=== PATIENT | male | born 1985 | race African-American/Black ===

== ENCOUNTER 2016-08-20 16:24 | Inpatient (IN) | payer BC ==
[2016-08-20 17:25] VITALS: BMI 17.9
--- NOTE | 2016-08-20 18:21 | HP ---
CIWA Score - CIWA Score Nausea/Vomitin Muscle Tremors: 4-Moderate,w/Arms Extend Anxiety: 4-Mod. Anxious/Guarded Agitation: 4-Moderately Restless Paroxysmal Sweats: 3 Orientation: 0-Oriented Tacttile Disturbances: 2-Mild Itch/Numbness/Burn Auditory Disturbances: 0-None Visual Disturbances: 0-None Headache: 0-None Present CIWA-Ar Total Score: 20 Admission ROS BHS - HPI Chief Complaint: WITHDRAWAL SX. Allergies/Adverse Reactions: Allergies Allergy/AdvReac Type Severity Reaction Status Date / Time No Known Allergies Allergy Verified 01/22/13 14:15 History of Present Illness: 31 Y/O MAN WITH A LONG HX. OF DRUG AND ALCOHOL DEPENDENCE IS ADMITTED FOR DETOX.PT. HAS BEEN IN PREVIOUS DETOX,REPORTS ALMOST 2 YRS. SOBER. Exam Limitations: No Limitations - Ebola screening Have you traveled outside of the country in the last 21 days: No (N) Have you had contact with anyone from an Ebola affected area: No Have you been sick,other than usual withdrawal symptoms: No Do you have a fever: No - Review of Systems Constitutional: Diaphoresis EENT: reports: No Symptoms Reported Respiratory: reports: No Symptoms reported Cardiac: reports: No Symptoms Reported GI: reports: Nausea, Vomiting (LAST NIGHT), Abdominal cramping : reports: Frequency Musculoskeletal: reports: Back Pain Integumentary: reports: Sweating Neuro: reports: Tingling, Tremors Endocrine: reports: No Symptoms Reported Hematology: reports: No Symptoms Reported Psychiatric: reports: No Sypmtoms Reported Other Systems: Reviewed and Negative Patient History - Patient Medical History Hx Anemia: No Hx Asthma: No Hx Chronic Obstructive Pulmonary Disease (COPD): No Hx Cancer: No Hx Cardiac Disorders: No Hx Congestive Heart Failure: No Hx Hypertension: No Hx Hypercholesterolemia: No Hx Pacemaker: No HX Cerebrovascular Accident: No Hx Seizures: No Hx Dementia: No Hx Diabetes: No Hx Gastrointestinal Disorders: No Hx Liver Disease: No Hx Genitourinary Disorders: No Hx Sexually Transmitted Disorders: No Hx Renal Disease (ESRD): No Hx Thyroid Disease: No Hx Human Immunodeficiency Virus (HIV): No Hx Hepatitis C: No Hx Depression: No Hx Suicide Attempt: No Hx Bipolar Disorder: No Hx Schizophrenia: No - Patient Surgical History Past Surgical History: No Hx Neurologic Surgery: No Hx Cataract Extraction: No Hx Cardiac Surgery: No Hx Lung Surgery: No Hx Breast Surgery: No Hx Breast Biopsy: No Hx Abdominal Surgery: No Hx Appendectomy: No Hx Cholecystectomy: No Hx Genitourinary Surgery: No Hx Section: No Hx Orthopedic Surgery: No Anesthesia Reaction: No - PPD History Previous Implant?: Yes Documented Results: Negative w/proof Date: 01/25/13 Results: 0 mm PPD to be Administered?: Yes - Smoking Cessation Smoking history: Current every day smoker Have you smoked in the past 12 months: No Aproximately how many cigarettes per day: 5 Hx Chewing Tobacco Use: No Initiated information on smoking cessation: Yes 'Breaking Loose' booklet given: 08/20/16 - Substance & Tx. History Hx Alcohol Use: Yes Hx Substance Use: Yes Substance Use Type: Alcohol, Cocaine Hx Substance Use Treatment: Yes (DETOX & REHAB) - Substances Abused Alcohol Route: Oral Frequency: Daily Amount used: CHINO 3 pints, Beer 1 six pack Age of first use: 14 Date of Last Use: 08/20/16 Crack Route: Smoking Frequency: Daily Amount used: 3 BAGS Age of first use: 18 Date of Last Use: 08/19/16 Marijuana/Hashish Route: Smoking Frequency: Daily Amount used: 2 BAGS Age of first use: 17 Date of Last Use: 08/20/16 Family Disease History - Family Disease History Family Disease History: Diabetes: Grandparent (HTN), Heart Disease: Grandparent , Other: Mother (COCAINE & ALCOHOL) Admission Physical Exam S - Vital Signs Vital Signs: Vital Signs - 24 hr 08/20/16 17:23 Temperature 98.9 F Pulse Rate 89 Respiratory 18 Rate Blood Pressure 138/80 - Physical General Appearance: Yes: Tremorous, Sweating, Anxious HEENTM: Yes: Within Normal Limits Respiratory: Yes: Chest Non-Tender, Lungs Clear, Normal Breath Sounds Neck: Yes: Supple Breast: Yes: Breast Exam Deferred Cardiology: Yes: Regular Rhythm, Regular Rate, S1, S2 Abdominal: Yes: Normal Bowel Sounds, Non Tender, Flat, Soft Genitourinary: Yes: Within Normal Limits Back: Yes: Within Normal Limits Musculoskeletal: Yes: Within Normal Limits Extremities: Yes: Tremors Neurological: Yes: Fully Oriented, Alert Integumentary: Yes: Diaphoresis Lymphatic: Yes: Within Normal Limits - Diagnostic (1) Cannabis dependence Current Visit: Yes Status: Active (2) Cocaine dependence Current Visit: Yes Status: Active (3) Nicotine dependence Current Visit: Yes Status: Active (4) Alcohol dependence with uncomplicated withdrawal Current Visit: Yes Status: Acute Cleared for Admission [facility] - Detox or Rehab [facility] Level of Care: Medically Managed Detox Regimen/Protocol: Librium [facility] Breath Alcohol Content Breath Alcohol Content: 0 Urine Drug Screen - Results Drug Screen Negative: No Urine Drug Screen Results: THC-Marijuana, VINCENT-Cocaine, AMP-Amphetamines, MET- Methamphetamine
[2016-08-20] MEDS ORDERED: LOPERAMIDE HCL 2 MG CAPSULE PO PRN (18:27)
[2016-08-20] MEDS ORDERED: guaiFENesin/D-METHORPHAN HB 10 ML UNIT-DOSE CUPS PO PRN (18:27)
[2016-08-20] MEDS ORDERED: chlordiazePOXIDE HCL 25 MG CAPSULE PO ONE (18:27)
[2016-08-20] MEDS ORDERED: diphenhydrAMINE HCL 50 MG CAPSULE PO PRN (18:27)
[2016-08-20] MEDS ORDERED: IBUPROFEN 400 MG TABLET (FP) PO PRN (18:27)
[2016-08-20] MEDS ORDERED: MAGNESIUM CITRATE 300 ML BOTTLE PO PRN (18:27)
[2016-08-20] MEDS ORDERED: NICOTINE POLACRILEX 2 MG GUM BC PRN (18:27)
[2016-08-20] MEDS ORDERED: P-EPHED 60MG/TRIPROLIDI 2.5MG TABLET PO PRN (18:27)
[2016-08-20] MEDS ORDERED: chlordiazePOXIDE HCL 25 MG CAPSULE PO PRN (18:27)
[2016-08-20] MEDS ORDERED: hydrOXYzine PAMOATE 50 MG CAPSULE (FP) PO PRN (18:27)
[2016-08-20] MEDS ORDERED: MENTHOL/PHENOL 1 EACH UD MM PRN (18:27)
[2016-08-20] MEDS ORDERED: MAGNESIUM HYDROX 2400MG/30ML ORAL SUSPENSION 30 ML CUP PO PRN (18:27)
[2016-08-20] MEDS ORDERED: MAG HYDROX/AL HYDROX/SIMETH 30 ML UNIT-DOSE CUP PO PRN (18:27)
[2016-08-20] MEDS ORDERED: ACETAMINOPHEN 325 MG TABLET (FP) PO PRN (18:27)
[2016-08-20] MEDS: NICOTINE 14 MG/24 HOURS TOPICAL PATCH TD SCH (19:36)
[2016-08-20] MEDS: chlordiazePOXIDE HCL 25 MG CAPSULE PO SCH (23:06)
[2016-08-20] MEDS: THIAMINE HCL 100 MG TABLET (FP) PO SCH (23:06)
[2016-08-21] MEDS: chlordiazePOXIDE HCL 25 MG CAPSULE PO SCH ×2 (07:06→11:43)
[2016-08-21 09:50] LABS: MCHC 33.4 g/dl (32.0-35.9); MEAN CELL VOLUME 89.9 fl (80-96); MEAN PLT VOLUME 8.4 fl (7.5-11.1); PLATELET COUNT 228 K/MM3 (134-434); RDW 13.4 % (11.9-15.9); WHITE BLOOD COUNT 5.4 K/mm3 (4.0-10.0)
[2016-08-21 10:17] LABS: ALBUMIN 3.7 g/dl (3.4-5.0); ALK PHOS 48 U/L (45-117); ANION GAP 8 (8-16); BILIRUBIN,TOTAL 0.5 mg/dL (0.2-1.0); CO2 28 mmol/L (21-32); CREATININE 1.3 mg/dL (0.7-1.3); GLUCOSE,RANDOM 78 mg/dL (74-106); SGOT/AST 18 U/L (15-37); SGPT/ALT 29 U/L (12-78); TOT PROT 6.9 g/dl (6.4-8.2)
[2016-08-21] MEDS: PRENATAL VITAMINS W/ FOLIC ACID TABLET (FP) PO SCH (11:43)
[2016-08-21] MEDS: NICOTINE 14 MG/24 HOURS TOPICAL PATCH TD SCH (11:43)
[2016-08-21] MEDS ORDERED: diazePAM 5 MG TABLET PO PRN (13:03)
--- NOTE | 2016-08-21 13:09 | PN ---
[facility] CIWA - CIWA Score Nausea/Vomitin-Mild Nausea/No Vomiting Muscle Tremors: 3 Anxiety: 2 Agitation: 2 Paroxysmal Sweats: 3 Orientation: 1-Uncertain about Date Tacttile Disturbances: 1-Very Mild Itch/Numbness Auditory Disturbances: 0-None Visual Disturbances: 2-Mild Sensitivity Headache: 0-None Present CIWA-Ar Total Score: 15 BHS Progress Note (SOAP) Subjective: Fatigue, Body Aches, Tremors, Sweating. PT. REPORTING THAT LIBRIUM IS CAUSING HIM TO FEEL SEVERELY NAUSEOUS. Objective: 08/21/16 13:06 Vital Signs Temperature 97.1 F L 08/21/16 09:34 Pulse Rate 57 L 08/21/16 09:34 Respiratory Rate 18 08/21/16 09:34 Blood Pressure 118/72 08/21/16 09:34 O2 Sat by Pulse Oximetry (%) Laboratory Last Values WBC 5.4 K/mm3 (4.0-10.0) 08/21/16 07:30 RBC 4.56 M/mm3 (4.00-5.60) 08/21/16 07:30 Hgb 13.7 GM/dL (11.7-16.9) 08/21/16 07:30 Hct 41.0 % (35.4-49) 08/21/16 07:30 MCV 89.9 fl (80-96) 08/21/16 07:30 MCHC 33.4 g/dl (32.0-35.9) 08/21/16 07:30 RDW 13.4 % (11.9-15.9) 08/21/16 07:30 Plt Count 228 K/MM3 (134-434) 08/21/16 07:30 MPV 8.4 fl (7.5-11.1) 08/21/16 07:30 Sodium 138 mmol/L (136-145) 08/21/16 07:20 Potassium 3.8 mmol/L (3.5-5.1) 08/21/16 07:20 Chloride 102 mmol/L (98-107) 08/21/16 07:20 Carbon Dioxide 28 mmol/L (21-32) 08/21/16 07:20 Anion Gap 8 (8-16) 08/21/16 07:20 BUN 18 mg/dL (7-18) D 08/21/16 07:20 Creatinine 1.3 mg/dL (0.7-1.3) D 08/21/16 07:20 Creat Clearance w eGFR > 60 (>60) 08/21/16 07:20 Random Glucose 78 mg/dL (74-106) 08/21/16 07:20 Calcium 9.0 mg/dL (8.5-10.1) 08/21/16 07:20 Total Bilirubin 0.5 mg/dL (0.2-1.0) D 08/21/16 07:20 AST 18 U/L (15-37) D 08/21/16 07:20 ALT 29 U/L (12-78) D 08/21/16 07:20 Alkaline Phosphatase 48 U/L (45-117) 08/21/16 07:20 Total Protein 6.9 g/dl (6.4-8.2) 08/21/16 07:20 Albumin 3.7 g/dl (3.4-5.0) 08/21/16 07:20 LABS NOTED. Assessment: 08/21/16 13:06 WITHDRAWAL SYMPTOMS. Plan: CONTINUE DETOX. CHANGE FROM LIBRIUM DETOX REGIMEN TO VALIUM DETOX REGIMEN.
[2016-08-21] MEDS: diazePAM 5 MG TABLET PO SCH ×2 (13:59→22:46)
[2016-08-21] MEDS ORDERED: diazePAM 5 MG TABLET PO ONE (14:00)
[2016-08-21] MEDS: THIAMINE HCL 100 MG TABLET (FP) PO SCH (22:46)
[2016-08-21] MEDS ORDERED: chlordiazePOXIDE HCL 25 MG CAPSULE PO SCH (23:00)
[2016-08-21 23:01] LABS: URINE APPEARANCE CLEAR; URINE BILIRUBIN NEGATIVE (NEGATIVE); URINE BLOOD NEGATIVE (NEGATIVE); URINE COLOR YELLOW; URINE GLUCOSE (UA) NEGATIVE (NEGATIVE); URINE KETONE NEGATIVE (NEGATIVE); URINE LEUK ESTERASE NEGATIVE (NEGATIVE); URINE NITRITE NEGATIVE (NEGATIVE); URINE PROTEIN NEGATIVE (NEGATIVE); URINE UROBILINOGEN NEGATIVE E.U./dl (0.2-1.0)
[2016-08-22] MEDS: diazePAM 5 MG TABLET PO SCH ×3 (06:05→22:21)
[2016-08-22] MEDS: NICOTINE 14 MG/24 HOURS TOPICAL PATCH TD SCH (10:21)
[2016-08-22] MEDS: PRENATAL VITAMINS W/ FOLIC ACID TABLET (FP) PO SCH (10:22)
--- NOTE | 2016-08-22 14:20 | PN ---
S CIWA - CIWA Score Nausea/Vomitin-No Nausea/No Vomiting Muscle Tremors: 2 Anxiety: 4-Mod. Anxious/Guarded Agitation: 4-Moderately Restless Paroxysmal Sweats: 3 Orientation: 0-Oriented Tacttile Disturbances: 0-None Auditory Disturbances: 0-None Visual Disturbances: 0-None Headache: 0-None Present CIWA-Ar Total Score: 13 BHS Progress Note (SOAP) Subjective: AGITATED,SWEATING,INTERRUPTED SLEEP,RESTLESS,TREMORS. Objective: 08/22/16 14:20 Vital Signs - 8 hr 08/22/16 10:40 Temperature 97.0 F L Pulse Rate 64 Respiratory 18 Rate Blood Pressure 116/69 Laboratory Tests 08/21/16 08/21/16 08/21/16 07:20 07:20 07:30 WBC 5.4 RBC 4.56 Hgb 13.7 Hct 41.0 MCV 89.9 MCHC 33.4 RDW 13.4 Plt Count 228 MPV 8.4 Sodium 138 Potassium 3.8 Chloride 102 Carbon Dioxide 28 Anion Gap 8 BUN 18 D Creatinine 1.3 D Creat Clearance w eGFR > 60 Random Glucose 78 Calcium 9.0 Total Bilirubin 0.5 D AST 18 D ALT 29 D Alkaline Phosphatase 48 Total Protein 6.9 Albumin 3.7 Urine Color Urine Appearance Urine pH Ur Specific [place] Urine Protein Urine Glucose (UA) Urine Ketones Urine Blood Urine Nitrite Urine Bilirubin Urine Urobilinogen Ur Leukocyte Esterase RPR Titer Nonreactive 08/21/16 22:45 WBC RBC Hgb Hct MCV MCHC RDW Plt Count MPV Sodium Potassium Chloride Carbon Dioxide Anion Gap BUN Creatinine Creat Clearance w eGFR Random Glucose Calcium Total Bilirubin AST ALT Alkaline Phosphatase Total Protein Albumin Urine Color Yellow Urine Appearance Clear Urine pH 5.0 Ur Specific [place] 1.030 Urine Protein Negative Urine Glucose (UA) Negative Urine Ketones Negative Urine Blood Negative Urine Nitrite Negative Urine Bilirubin Negative Urine Urobilinogen Negative Ur Leukocyte Esterase Negative RPR Titer LABS NOTED Assessment: 08/22/16 14:20 WITHDRAWAL SX. Plan: CONTINUE DETOX
[2016-08-22] MEDS: THIAMINE HCL 100 MG TABLET (FP) PO SCH (22:21)
[2016-08-22] MEDS ORDERED: chlordiazePOXIDE 5 MG CAPSULE PO SCH (23:00)
[2016-08-23 06:44] VITALS: BP 108/60
[2016-08-23] MEDS ORDERED: diazePAM 5 MG TABLET PO SCH (10:00)
[2016-08-23] MEDS: NICOTINE 14 MG/24 HOURS TOPICAL PATCH TD SCH (10:06)
[2016-08-23] MEDS: PRENATAL VITAMINS W/ FOLIC ACID TABLET (FP) PO SCH (10:06)
--- NOTE | 2016-08-23 10:31 | DS ---
[facility] Detox Discharge Summary Admission Date: 08/20/16 Discharge Date: 08/23/16 - History Present History: Alcohol Dependence, Cannabis Dependence, Cocaine Dependence Pertinent Past History: DENIES - Physical Exam Results Vital Signs: Vital Signs Temperature 97.1 F L 08/23/16 06:43 Pulse Rate 46 L 08/23/16 06:43 Respiratory Rate 18 08/23/16 06:43 Blood Pressure 108/60 08/23/16 06:43 O2 Sat by Pulse Oximetry (%) Pertinent Admission Physical Exam Findings: WITHDRAWAL SX. Laboratory Last Values WBC 5.4 K/mm3 (4.0-10.0) 08/21/16 07:30 RBC 4.56 M/mm3 (4.00-5.60) 08/21/16 07:30 Hgb 13.7 GM/dL (11.7-16.9) 08/21/16 07:30 Hct 41.0 % (35.4-49) 08/21/16 07:30 MCV 89.9 fl (80-96) 08/21/16 07:30 MCHC 33.4 g/dl (32.0-35.9) 08/21/16 07:30 RDW 13.4 % (11.9-15.9) 08/21/16 07:30 Plt Count 228 K/MM3 (134-434) 08/21/16 07:30 MPV 8.4 fl (7.5-11.1) 08/21/16 07:30 Sodium 138 mmol/L (136-145) 08/21/16 07:20 Potassium 3.8 mmol/L (3.5-5.1) 08/21/16 07:20 Chloride 102 mmol/L (98-107) 08/21/16 07:20 Carbon Dioxide 28 mmol/L (21-32) 08/21/16 07:20 Anion Gap 8 (8-16) 08/21/16 07:20 BUN 18 mg/dL (7-18) D 08/21/16 07:20 Creatinine 1.3 mg/dL (0.7-1.3) D 08/21/16 07:20 Creat Clearance w eGFR > 60 (>60) 08/21/16 07:20 Random Glucose 78 mg/dL (74-106) 08/21/16 07:20 Calcium 9.0 mg/dL (8.5-10.1) 08/21/16 07:20 Total Bilirubin 0.5 mg/dL (0.2-1.0) D 08/21/16 07:20 AST 18 U/L (15-37) D 08/21/16 07:20 ALT 29 U/L (12-78) D 08/21/16 07:20 Alkaline Phosphatase 48 U/L (45-117) 08/21/16 07:20 Total Protein 6.9 g/dl (6.4-8.2) 08/21/16 07:20 Albumin 3.7 g/dl (3.4-5.0) 08/21/16 07:20 Urine Color Yellow 08/21/16 22:45 Urine Appearance Clear 08/21/16 22:45 Urine pH 5.0 (5.0-8.0) 08/21/16 22:45 Ur Specific [place] 1.030 (1.001-1.035) 08/21/16 22:45 Urine Protein Negative (NEGATIVE) 08/21/16 22:45 Urine Glucose (UA) Negative (NEGATIVE) 08/21/16 22:45 Urine Ketones Negative (NEGATIVE) 08/21/16 22:45 Urine Blood Negative (NEGATIVE) 08/21/16 22:45 Urine Nitrite Negative (NEGATIVE) 08/21/16 22:45 Urine Bilirubin Negative (NEGATIVE) 08/21/16 22:45 Urine Urobilinogen Negative E.U./dl (0.2-1.0) 08/21/16 22:45 Ur Leukocyte Esterase Negative (NEGATIVE) 08/21/16 22:45 RPR Titer Nonreactive (NONREACTIVE) 08/21/16 07:20 LABS NOTED - Treatment Hospital Course: Detox Protocol Followed, Detoxed Safely, Responded well, Discharged Condition Good, Rehab Referral Accepted Patient has Accepted a Rehab Referral to: [facility] - Medication Discharge Medications: Ambulatory Orders NK [No Known Home Medication] 08/20/16 - Diagnosis (1) Cannabis dependence Current Visit: Yes Status: Active (2) Cocaine dependence Current Visit: Yes Status: Active (3) Nicotine dependence Current Visit: Yes Status: Active (4) Alcohol dependence with uncomplicated withdrawal Current Visit: Yes Status: Acute - AMA Did Patient Leave Against Medical Advice: No
[2016-08-23 10:51] VITALS: PULSE 55; TEMP 98
[2016-08-23 11:44] LABS: HIV 1 & 2 AB NEGATIVE; HIV 1 AGp24 NEGATIVE
[2016-08-23] MEDS ORDERED: chlordiazePOXIDE HCL 10 MG CAPSULE PO SCH (23:00)
[2016-08-25] MEDS ORDERED: diazePAM 5 MG TABLET PO SCH (10:00)
== END 2016-08-23 12:39 | disposition other institution (70) | DRG 774 ==
LOC: YASAS 16:24 → Y3N 17:39
PROVIDERS: ADMIT Internal Medicine; ATTEND Internal Medicine
PROC: HZ2ZZZZ Detoxification Services for Substance Abuse Treatment (ICD-10-PCS; principal; 2016-08-20)
DX: F10.230 Alcohol dependence with withdrawal, uncomplicated (principal); F14.20 Cocaine dependence, uncomplicated; F12.20 Cannabis dependence, uncomplicated; F17.210 Nicotine dependence, cigarettes, uncomplicated
CPT/HCPCS: 36415; 80053; 81003; 85027; 86593; 87389; 93005; 93010

== ENCOUNTER 2016-08-23 13:04 | Inpatient (IN) | payer BC ==
[2016-08-23 13:46] VITALS: BMI 18.6
[2016-08-23] MEDS ORDERED: MENTHOL/PHENOL 1 EACH UD MM PRN (13:51)
[2016-08-23] MEDS ORDERED: P-EPHED 60MG/TRIPROLIDI 2.5MG TABLET PO PRN (13:51)
[2016-08-23] MEDS ORDERED: ACETAMINOPHEN 325 MG TABLET (FP) PO PRN (13:51)
[2016-08-23] MEDS ORDERED: MAG HYDROX/AL HYDROX/SIMETH 30 ML UNIT-DOSE CUP PO PRN (13:51)
[2016-08-23] MEDS ORDERED: MAGNESIUM HYDROX 2400MG/30ML ORAL SUSPENSION 30 ML CUP PO PRN (13:51)
[2016-08-23] MEDS ORDERED: MAGNESIUM CITRATE 300 ML BOTTLE PO PRN (13:51)
[2016-08-23] MEDS ORDERED: LOPERAMIDE HCL 2 MG CAPSULE PO PRN (13:51)
[2016-08-23] MEDS ORDERED: guaiFENesin/D-METHORPHAN HB 10 ML UNIT-DOSE CUPS PO PRN (13:51)
[2016-08-23] MEDS ORDERED: hydrOXYzine PAMOATE 50 MG CAPSULE (FP) PO PRN (13:51)
[2016-08-23] MEDS ORDERED: IBUPROFEN 400 MG TABLET (FP) PO PRN (13:51)
--- NOTE | 2016-08-23 14:02 | HP ---
Psychiatrist Admission - Data Date of interview: 08/23/16 Admission source: 3N Identifying data: This is the third [facility] admission for this 31 years old single Black male, father of 3 children, unemployed on public assistance, homeless Medical History: None significant. Smokes 5 cigarettes daily Psychiatric History: Denies history of previous psychiatric treatment Physical/Sexual Abuse/Trauma History: Denies history of physical, sexual abuse as well as DV relationship Additional Comment: Reports history of multiple misdemeanor arrests on charges of trespassing, drug sale etc. Denies being on probation at present Vital Signs: Vital Signs - 24 hr 08/23/16 13:26 Temperature 98.7 F Pulse Rate 73 Respiratory 18 Rate Blood Pressure 135/73 Allergies/Adverse Reactions: Allergies Allergy/AdvReac Type Severity Reaction Status Date / Time No Known Allergies Allergy Verified 01/22/13 14:15 Date of last physical exam: 08/20/16 Concur with the findings of this exam: Yes - Substance Abuse/Tx History Hx Alcohol Use: Yes Hx Substance Use: Yes Substance Use Type: Alcohol (Started drinking alcohol at age 14, consumes 3 pints of amy & a 6 pk of beer daily. Last drink on 08/20/16), Cocaine ( Started smoking crack cocaine at age 18, consumes 3 bags daily. Last smoked on 08/20/16), Marijuana (Started smoking marijuana at age 17, consumes 2 bags daily. Last smoked on 08/19/16) Hx Substance Use Treatment: Yes (6 previous inpt detox & 4 inpt rehab) - Admission Criteria Previous failed treatment: No Poor recovery environment: Yes Comorbidities: Yes Lacks judgement: Yes Mental Status Exam - Mental Status Exam Alert and Oriented to: Time, Place, Person Cognitive Function: Fair Patient Appearance: Well Groomed Mood: Hopeful, Euthymic Patient Behavior: Cooperative Speech Pattern: Clear Voice Loudness: Normal Thought Process: Intact Hallucinations: Denies Suicidal Ideation: Denies Homicidal Ideation: Denies Insight/Judgement: Fair Sleep: Fair Appetite: Good Muscle strength/Tone: Normal Gait/Station: Normal Psychiatric Findings - Problem List ([place] 1, 2,3) (1) Alcohol dependence with uncomplicated withdrawal Current Visit: No Status: Acute (2) Cocaine dependence Current Visit: No Status: Active (3) Cannabis dependence Current Visit: No Status: Active (4) Nicotine dependence Current Visit: No Status: Active - Initial Treatment Plan Initial Treatment Plan: Monitor progress
--- NOTE | 2016-08-23 16:57 | HP ---
[facility] Re[facility] Assess/Revision - Admission History Admitted to Rehab [facility]: [facility] Date of Admission to Rehab: 08/23/16 - Vital signs Vital Signs: Vital Signs Period Temp Pulse Resp BP Sys/Alonzo Pulse Ox Last 24 Hr 98.7 F 73 18 135/73 - Findings Detox History & Physical reviewed: Yes Concur with findings: Yes Comments/Additional Findings: trasnferred from detox to rehab admission as per protocol
[2016-08-23] MEDS: THIAMINE HCL 100 MG TABLET (FP) PO SCH (23:09)
[2016-08-24] MEDS: NICOTINE 7 MG/24 HOURS TOPICAL PATCH TD SCH (09:43)
[2016-08-24] MEDS: PRENATAL VITAMINS W/ FOLIC ACID TABLET (FP) PO SCH (09:43)
[2016-08-24] MEDS: COLLOIDAL OATMEAL 1 BAR EACH TP PRN (14:30)
[2016-08-24] MEDS: AMMONIUM LACTATE 12% LOTION 225 GM BOTTLE TP PRN (14:31)
[2016-08-24] MEDS: THIAMINE HCL 100 MG TABLET (FP) PO SCH (21:12)
[2016-08-24] MEDS: diphenhydrAMINE HCL 50 MG CAPSULE PO PRN (21:12)
[2016-08-25] MEDS: PRENATAL VITAMINS W/ FOLIC ACID TABLET (FP) PO SCH (09:55)
[2016-08-25] MEDS: NICOTINE 7 MG/24 HOURS TOPICAL PATCH TD SCH (09:55)
[2016-08-25] MEDS: THIAMINE HCL 100 MG TABLET (FP) PO SCH (21:11)
[2016-08-25] MEDS: diphenhydrAMINE HCL 50 MG CAPSULE PO PRN (22:22)
[2016-08-26] MEDS: NICOTINE 7 MG/24 HOURS TOPICAL PATCH TD SCH (09:52)
[2016-08-26] MEDS: PRENATAL VITAMINS W/ FOLIC ACID TABLET (FP) PO SCH (09:52)
[2016-08-26] MEDS: THIAMINE HCL 100 MG TABLET (FP) PO SCH (21:23)
[2016-08-26] MEDS: diphenhydrAMINE HCL 50 MG CAPSULE PO PRN (21:23)
[2016-08-27] MEDS: PRENATAL VITAMINS W/ FOLIC ACID TABLET (FP) PO SCH (10:03)
[2016-08-27] MEDS: NICOTINE 7 MG/24 HOURS TOPICAL PATCH TD SCH (10:03)
[2016-08-27] MEDS: AMMONIUM LACTATE 12% LOTION 225 GM BOTTLE TP PRN (14:11)
[2016-08-27] MEDS: COLLOIDAL OATMEAL 1 BAR EACH TP PRN (14:12)
[2016-08-27] MEDS: THIAMINE HCL 100 MG TABLET (FP) PO SCH (22:14)
[2016-08-27] MEDS: diphenhydrAMINE HCL 50 MG CAPSULE PO PRN (22:14)
[2016-08-28] MEDS: NICOTINE 7 MG/24 HOURS TOPICAL PATCH TD SCH (09:52)
[2016-08-28] MEDS: PRENATAL VITAMINS W/ FOLIC ACID TABLET (FP) PO SCH (09:52)
[2016-08-28] MEDS: diphenhydrAMINE HCL 50 MG CAPSULE PO PRN ×2 (21:35→22:56)
[2016-08-28] MEDS: THIAMINE HCL 100 MG TABLET (FP) PO SCH (21:35)
[2016-08-29] MEDS: NICOTINE 7 MG/24 HOURS TOPICAL PATCH TD SCH (09:44)
[2016-08-29] MEDS: PRENATAL VITAMINS W/ FOLIC ACID TABLET (FP) PO SCH (09:44)
[2016-08-29] MEDS: THIAMINE HCL 100 MG TABLET (FP) PO SCH (21:13)
[2016-08-29] MEDS: diphenhydrAMINE HCL 50 MG CAPSULE PO PRN (21:13)
[2016-08-30] MEDS: PRENATAL VITAMINS W/ FOLIC ACID TABLET (FP) PO SCH (09:41)
[2016-08-30] MEDS: NICOTINE 7 MG/24 HOURS TOPICAL PATCH TD SCH (09:42)
[2016-08-30] MEDS: THIAMINE HCL 100 MG TABLET (FP) PO SCH (21:38)
[2016-08-30] MEDS: diphenhydrAMINE HCL 50 MG CAPSULE PO PRN (21:38)
[2016-08-31] MEDS: PRENATAL VITAMINS W/ FOLIC ACID TABLET (FP) PO SCH (09:50)
[2016-08-31] MEDS: NICOTINE 7 MG/24 HOURS TOPICAL PATCH TD SCH (09:51)
[2016-08-31] MEDS: diphenhydrAMINE HCL 50 MG CAPSULE PO PRN (21:39)
[2016-08-31] MEDS: THIAMINE HCL 100 MG TABLET (FP) PO SCH (21:39)
[2016-09-01] MEDS: PRENATAL VITAMINS W/ FOLIC ACID TABLET (FP) PO SCH (10:05)
[2016-09-01] MEDS: NICOTINE 7 MG/24 HOURS TOPICAL PATCH TD SCH (10:05)
[2016-09-01] MEDS: diphenhydrAMINE HCL 50 MG CAPSULE PO PRN (21:20)
[2016-09-01] MEDS: THIAMINE HCL 100 MG TABLET (FP) PO SCH (21:20)
[2016-09-01] MEDS: AMMONIUM LACTATE 12% LOTION 225 GM BOTTLE TP PRN (21:20)
[2016-09-02] MEDS: PRENATAL VITAMINS W/ FOLIC ACID TABLET (FP) PO SCH (10:05)
[2016-09-02] MEDS: NICOTINE 7 MG/24 HOURS TOPICAL PATCH TD SCH (10:06)
[2016-09-02] MEDS: COLLOIDAL OATMEAL 1 BAR EACH TP PRN (10:07)
[2016-09-02] MEDS: THIAMINE HCL 100 MG TABLET (FP) PO SCH (21:13)
[2016-09-02] MEDS: diphenhydrAMINE HCL 50 MG CAPSULE PO PRN (21:13)
[2016-09-03] MEDS: PRENATAL VITAMINS W/ FOLIC ACID TABLET (FP) PO SCH (10:30)
[2016-09-03] MEDS: NICOTINE 7 MG/24 HOURS TOPICAL PATCH TD SCH (10:31)
[2016-09-03] MEDS: THIAMINE HCL 100 MG TABLET (FP) PO SCH (21:11)
[2016-09-03] MEDS: diphenhydrAMINE HCL 50 MG CAPSULE PO PRN (21:11)
[2016-09-04] MEDS: PRENATAL VITAMINS W/ FOLIC ACID TABLET (FP) PO SCH (10:00)
[2016-09-04] MEDS: NICOTINE 7 MG/24 HOURS TOPICAL PATCH TD SCH (10:00)
[2016-09-04] MEDS: THIAMINE HCL 100 MG TABLET (FP) PO SCH (21:14)
[2016-09-04] MEDS: diphenhydrAMINE HCL 50 MG CAPSULE PO PRN (21:14)
[2016-09-05] MEDS: PRENATAL VITAMINS W/ FOLIC ACID TABLET (FP) PO SCH (09:45)
[2016-09-05] MEDS: NICOTINE 7 MG/24 HOURS TOPICAL PATCH TD SCH (09:45)
[2016-09-05] MEDS: diphenhydrAMINE HCL 50 MG CAPSULE PO PRN (21:07)
[2016-09-05] MEDS: THIAMINE HCL 100 MG TABLET (FP) PO SCH (21:08)
[2016-09-06] MEDS: PRENATAL VITAMINS W/ FOLIC ACID TABLET (FP) PO SCH (10:56)
[2016-09-06] MEDS: NICOTINE 7 MG/24 HOURS TOPICAL PATCH TD SCH (10:58)
[2016-09-06] MEDS: THIAMINE HCL 100 MG TABLET (FP) PO SCH (21:14)
[2016-09-06] MEDS: diphenhydrAMINE HCL 50 MG CAPSULE PO PRN (21:14)
[2016-09-07 06:53] VITALS: BP 115/71; PULSE 59; TEMP 97.6
--- NOTE | 2016-09-07 10:07 | PN ---
Psychiatric Progress Note Vital Signs: Vital Signs Period Temp Pulse Resp BP Sys/Alonzo Pulse Ox Last 24 Hr 97.6 F 59 16-18 115/71 Date of Session: 09/07/16 Chief Complaint:: Psychiatrist Discharge Note HPI: Patient addressing Alcohol, Cocaine and Cannabis Dependence comorbid with Nicotine Dependence ROS: None significant Current Medications: Active Medications Generic Name Dose Route Start Last Admin Trade Name Freq PRN Reason Stop Dose Admin Acetaminophen 650 mg 08/23/16 13:51 Tylenol - PO Q4H PRN FEVER OR PAIN Al Hydroxide/Mg Hydroxide 30 ml 08/23/16 13:51 Mylanta Oral Suspension - PO Q6H PRN DYSPEPSIA Colloidal Oatmeal 1 applic 08/24/16 12:47 09/02/16 10:07 Aveeno Soap - TP 1 bar DAILY PRN Administration HYGEINE Diphenhydramine HCl 50 mg 08/23/16 13:51 09/06/16 21:14 Benadryl - PO 50 mg HSMR1 PRN Administration FOR ITCHING Eucalyptus/Menthol/Phenol/Sorbitol 1 each 08/23/16 13:51 Cepastat Lozenge - MM Q4H PRN SORE THROAT Guaifenesin 10 ml 08/23/16 13:51 Robitussin Dm - PO Q6H PRN COUGH Hydroxyzine Pamoate 50 mg 08/23/16 13:51 Vistaril - PO Q4H PRN AGITATION Ibuprofen 400 mg 08/23/16 13:51 09/02/16 10:05 Motrin - PO 400 mg Q6H PRN Administration PAIN Lactic Acid 1 applic 08/24/16 12:48 09/01/16 21:20 Lac-Hydrin 12 TP 1 applic BID PRN Administration DRY SKIN Loperamide HCl 4 mg 08/23/16 13:51 Imodium - PO Q6H PRN DIARRHEA Magnesium Hydroxide 30 ml 08/23/16 13:51 Milk Of Magnesia - PO DAILY PRN CONSTIPATION Nicotine 7 mg 08/24/16 10:00 09/06/16 10:58 Nicoderm Patch - TD 7 mg DAILY CASSANDRA Administration Multivit/Folic Acid/Iron 1 tab 08/24/16 10:00 09/06/16 10:56 Vitamins (Sjr) - PO 1 tab DAILY CASSANDRA Administration Pseudoephedrine/Triprolidine 1 combo 08/23/16 13:51 Actifed - PO TID PRN NASAL CONGESTION Thiamine HCl 100 mg 08/23/16 22:00 09/06/16 21:14 Vitamin B1 - PO 100 mg HS CASSANDRA Administration Current Side Effect: No Lab tests ordered: Yes Lab tests reviewed: Yes Provider note:: Patient has completed this program. He has partially met his treatment goals and will continue to address his issues in outpatient treatment at [facility]. Told fha underwriter that from his participation in this program, he has learned a lot about his attitute and needs for change. He is stable for discharge today Total face to face time:: 35 Mental Status Exam - Mental Status Exam Alert and Oriented to: Time, Place, Person Cognitive Function: Fair Patient Appearance: Well Groomed Mood: Hopeful, Euthymic Affect: Appropriate Patient Behavior: Cooperative Speech Pattern: Clear Voice Loudness: Normal Thought Process: Intact Thought Disorder: Not Present Hallucinations: Denies Suicidal Ideation: Denies Homicidal Ideation: Denies Insight/Judgement: Fair Sleep: Fair Appetite: Good Muscle strength/Tone: Normal Gait/Station: Normal Psychiatric Treatment Plan - Problem List (1) Alcohol dependence with uncomplicated withdrawal Current Visit: No (2) Cocaine dependence Current Visit: No (3) Cannabis dependence Current Visit: No (4) Nicotine dependence Current Visit: No Initial treatment plan: Patient is discharged today and referred to [facility] [place] for outpatient treatment
[2016-09-07] MEDS: NICOTINE 7 MG/24 HOURS TOPICAL PATCH TD SCH (10:18)
[2016-09-07] MEDS: PRENATAL VITAMINS W/ FOLIC ACID TABLET (FP) PO SCH (10:18)
== END 2016-09-07 10:25 | disposition home or self-care (01) | DRG 772 ==
LOC: YASAS 13:04 → Y3W 13:06
PROVIDERS: ADMIT Psychiatry & Neurology Psychiatry; ATTEND Psychiatry & Neurology Psychiatry
PROC: HZ42ZZZ Group Counseling for Substance Abuse Treatment, Cognitive-Behavioral (ICD-10-PCS; principal; 2016-08-23)
DX: F10.20 Alcohol dependence, uncomplicated (principal); F14.20 Cocaine dependence, uncomplicated; F12.20 Cannabis dependence, uncomplicated; F17.210 Nicotine dependence, cigarettes, uncomplicated

== ENCOUNTER 2017-01-25 11:49 | Inpatient (IN) | payer BC ==
[2017-01-25 12:21] VITALS: BMI 18.4
--- NOTE | 2017-01-25 15:43 | HP ---
CIWA Score - CIWA Score Nausea/Vomitin Muscle Tremors: 3 Anxiety: 3 Agitation: 3 Paroxysmal Sweats: 2 Orientation: 0-Oriented Tacttile Disturbances: 2-Mild Itch/Numbness/Burn Auditory Disturbances: 2-Mild Harshness/Frighten Visual Disturbances: 2-Mild Sensitivity Headache: 2-Mild CIWA-Ar Total Score: 22 Admission ROS BHS - HPI Chief Complaint: I NEED HELP TO STOP DRINKING ALCOHOL,COCAINE AND K2 Allergies/Adverse Reactions: Allergies Allergy/AdvReac Type Severity Reaction Status Date / Time No Known Allergies Allergy Verified 01/25/17 15:37 History of Present Illness: THIS 31 YEARS OLD BLACK MALE WITH ALCOHOL,COCAINE,K2 DEPENDNECE,WITHDRAWAL SYMPTOM,SEEKING HELP TO COME IN FOR DETOX,LAST DETOX [facility] 08/20,16 TO 08/23/16 SYNCOPE ALCOHOL RELATED LOW BACK PAIN LONGEST PERIOD OF SOBRIETY 1 YEAR Exam Limitations: No Limitations - Ebola screening Have you traveled outside of the country in the last 21 days: No Have you had contact with anyone from an Ebola affected area: No Have you been sick,other than usual withdrawal symptoms: No - Review of Systems Constitutional: Chills, Loss of Appetite, Malaise, Night Sweats, Changes in sleep, Weakness, Unintentional Wgt. Loss EENT: reports: Tearing, Nose Congestion Respiratory: reports: No Symptoms reported Cardiac: reports: No Symptoms Reported GI: reports: Diarrhea, Nausea, Vomiting, Abdominal cramping : reports: No Symptoms Reported Musculoskeletal: reports: Back Pain, Muscle Pain Neuro: reports: Headache, Tremors Endocrine: reports: No Symptoms Reported Hematology: reports: No Symptoms Reported Psychiatric: reports: No Sypmtoms Reported Patient History - Patient Medical History Hx Anemia: No Hx Asthma: No Hx Chronic Obstructive Pulmonary Disease (COPD): No Hx Cancer: No Hx Cardiac Disorders: No Hx Congestive Heart Failure: No Hx Hypertension: No Hx Hypercholesterolemia: No Hx Pacemaker: No HX Cerebrovascular Accident: No Hx Seizures: No Hx Dementia: No Hx Diabetes: No Hx Gastrointestinal Disorders: No Hx Liver Disease: No Hx Genitourinary Disorders: No Hx Sexually Transmitted Disorders: No Hx Renal Disease (ESRD): No Hx Thyroid Disease: No Hx Human Immunodeficiency Virus (HIV): No (LAST 2016 NEGATIVE) Hx Hepatitis C: No Hx Depression: No Hx Suicide Attempt: No Hx Bipolar Disorder: No Hx Schizophrenia: No Other Medical History: NO SUICIDAL,NO HOMICIDAL - Patient Surgical History Past Surgical History: No Hx Neurologic Surgery: No Hx Cataract Extraction: No Hx Cardiac Surgery: No Hx Lung Surgery: No Hx Breast Surgery: No Hx Breast Biopsy: No Hx Abdominal Surgery: No Hx Appendectomy: No Hx Cholecystectomy: No Hx Genitourinary Surgery: No Hx Section: No Hx Orthopedic Surgery: No Anesthesia Reaction: No - PPD History Previous Implant?: Yes Documented Results: Negative w/proof Date: 08/22/16 Results: 0 mm PPD to be Administered?: No - Smoking Cessation Smoking history: Current every day smoker Have you smoked in the past 12 months: No Aproximately how many cigarettes per day: 3 Cigars Per Day: 4 Hx Chewing Tobacco Use: No Initiated information on smoking cessation: Yes 'Breaking Loose' booklet given: 01/25/17 - Substance & Tx. History Hx Alcohol Use: Yes Hx Substance Use: Yes Substance Use Type: Alcohol, Cocaine Hx Substance Use Treatment: Yes ([facility] 08/20/16 TO 08/23/16) - Substances Abused Alcohol Route: Oral Frequency: Daily Amount used: 1 pint vodka Age of first use: 15 Date of Last Use: 01/24/17 Cocaine Route: Inhalation Frequency: Daily Amount used: $50 Age of first use: 18 Date of Last Use: 01/24/17 K2 Route: Smoking Frequency: 1-2 times per week Amount used: 1 bag Age of first use: 31 Date of Last Use: 01/24/17 Family Disease History - Family Disease History Family Disease History: Diabetes: Grandparent (HTN), Heart Disease: Grandparent , Other: Mother (COCAINE & ALCOHOL) Admission Physical Exam [facility] - Vital Signs Vital Signs: Vital Signs - 24 hr 01/25/17 12:13 Temperature 97.4 F L Pulse Rate 67 Respiratory 18 Rate Blood Pressure 135/66 - Physical General Appearance: Yes: Moderate Distress, Tremorous, Irritable, Sweating, Anxious HEENTM: Yes: Hearing grossly Normal, Normal ENT Inspection, Nasal Congestion Respiratory: Yes: Lungs Clear, Normal Breath Sounds, No Respiratory Distress Neck: Yes: Within Normal Limits, Supple, Trachea in good position Breast: Yes: Within Normal Limits Cardiology: Yes: Within Normal Limits, Regular Rhythm, Regular Rate, S1, S2 Abdominal: Yes: Within Normal Limits, Normal Bowel Sounds, Non Tender, Soft Genitourinary: Yes: Within Normal Limits Back: Yes: Normal Inspection, Muscle Spasm Musculoskeletal: Yes: full range of Motion, Back pain, Muscle Pain Extremities: Yes: Tremors Neurological: Yes: advertising photographer II-XII NML intact, Fully Oriented, Alert, Motor Strength 5/5 Integumentary: Yes: Dry Lymphatic: Yes: Within Normal Limits - Diagnostic (1) Cannabis dependence Current Visit: No Status: Active (2) Cocaine dependence Current Visit: No Status: Active (3) Nicotine dependence Current Visit: No Status: Active (4) Weight decreased Current Visit: No Status: Active (5) Alcohol dependence with uncomplicated withdrawal Current Visit: No Status: Acute (6) Syncope Current Visit: Yes Status: Acute Cleared for Admission [facility] - Detox or Rehab [facility] Level of Care: Medically Managed Detox Regimen/Protocol: Librium [facility] Breath Alcohol Content Breath Alcohol Content: 0 Urine Drug Screen - Results Drug Screen Negative: No Urine Drug Screen Results: VINCENT-Cocaine
[2017-01-25] MEDS ORDERED: guaiFENesin/D-METHORPHAN HB 10 ML UNIT-DOSE CUPS PO PRN (15:55)
[2017-01-25] MEDS ORDERED: LOPERAMIDE HCL 2 MG CAPSULE PO PRN (15:55)
[2017-01-25] MEDS ORDERED: hydrOXYzine PAMOATE 50 MG CAPSULE (FP) PO PRN (15:55)
[2017-01-25] MEDS ORDERED: IBUPROFEN 400 MG TABLET (FP) PO PRN (15:55)
[2017-01-25] MEDS ORDERED: chlordiazePOXIDE HCL 25 MG CAPSULE PO PRN (15:55)
[2017-01-25] MEDS ORDERED: MAGNESIUM CITRATE 300 ML BOTTLE PO PRN (15:55)
[2017-01-25] MEDS ORDERED: MAG HYDROX/AL HYDROX/SIMETH 30 ML UNIT-DOSE CUP PO PRN (15:55)
[2017-01-25] MEDS ORDERED: MAGNESIUM HYDROX 2400MG/30ML ORAL SUSPENSION 30 ML CUP PO PRN (15:55)
[2017-01-25] MEDS ORDERED: ACETAMINOPHEN 325 MG TABLET (FP) PO PRN (15:55)
[2017-01-25] MEDS ORDERED: P-EPHED 60MG/TRIPROLIDI 2.5MG TABLET PO PRN (15:55)
[2017-01-25] MEDS ORDERED: MENTHOL/PHENOL 1 EACH UD MM PRN (15:55)
[2017-01-25] MEDS ORDERED: chlordiazePOXIDE HCL 25 MG CAPSULE PO ONE (16:15)
[2017-01-25] MEDS: chlordiazePOXIDE HCL 25 MG CAPSULE PO SCH ×2 (16:48→22:16)
[2017-01-25 21:08] LABS: URINE APPEARANCE CLEAR; URINE BILIRUBIN NEGATIVE (NEGATIVE); URINE BLOOD NEGATIVE (NEGATIVE); URINE COLOR YELLOW; URINE GLUCOSE (UA) NEGATIVE (NEGATIVE); URINE KETONE NEGATIVE (NEGATIVE); URINE LEUK ESTERASE NEGATIVE (NEGATIVE); URINE NITRITE NEGATIVE (NEGATIVE); URINE PROTEIN NEGATIVE (NEGATIVE); URINE UROBILINOGEN NEGATIVE E.U./dl (0.2-1.0)
[2017-01-25] MEDS: THIAMINE HCL 100 MG TABLET (FP) PO SCH (22:16)
[2017-01-26] MEDS: chlordiazePOXIDE HCL 25 MG CAPSULE PO SCH ×4 (05:29→22:26)
[2017-01-26 09:59] LABS: MCH 30.4 pg (25.7-33.7); MCHC 33.1 g/dl (32.0-35.9); MEAN PLT VOLUME 7.8 fl (7.5-11.1); PLATELET COUNT 262 K/MM3 (134-434); RDW 13.4 % (11.9-15.9); WHITE BLOOD COUNT 7.5 K/mm3 (4.0-10.0)
[2017-01-26] MEDS: PRENATAL VITAMINS W/ FOLIC ACID TABLET (FP) PO SCH (10:00)
[2017-01-26 10:27] LABS: ALBUMIN 3.7 g/dl (3.4-5.0); ALK PHOS 52 U/L (45-117); ANION GAP 7 (8-16); BILIRUBIN,TOTAL 0.3 mg/dL (0.2-1.0); CALCIUM 9.4 mg/dL (8.5-10.1); CO2 29 mmol/L (21-32); COCKROFT - GAULT 78.64; CREATININE 1.2 mg/dL (0.7-1.3); GLUCOSE,RANDOM 74 mg/dL (74-106); SGOT/AST 18 U/L (15-37); SGPT/ALT 24 U/L (12-78)
--- NOTE | 2017-01-26 10:37 | EKG ---
Test Reason : Blood Pressure : / mmHG Vent. Rate : 047 BPM Atrial Rate : 047 BPM P-R Int : 198 ms QRS Dur : 098 ms QT Int : 436 ms P-R-T Axes : 040 070 059 degrees QTc Int : 385 ms SINUS BRADYCARDIA WITH SINUS ARRHYTHMIA MODERATE VOLTAGE CRITERIA FOR LVH, MAY BE NORMAL VARIANT BORDERLINE ECG NO PREVIOUS ECGS AVAILABLE Confirmed by CRUZITO OLVERA MD ([id number]) on 01/26/2017 10:36:55 AM Referred By: Confirmed By:CRUZITO OLVERA MD
--- NOTE | 2017-01-26 10:44 | PN ---
[facility] CIWA - CIWA Score Nausea/Vomitin Muscle Tremors: 3 Anxiety: 3 Agitation: 2 Paroxysmal Sweats: 1-Minimal Palms Moist Orientation: 0-Oriented Tacttile Disturbances: 1-Very Mild Itch/Numbness Auditory Disturbances: 1-Very Mild Visual Disturbances: 1-Very Mild Sensitivity Headache: 2-Mild CIWA-Ar Total Score: 17 S Progress Note (SOAP) Subjective: ALERT,IRRITABLE,ANXIOUS,INTERRUPTED SLEEP,TREMOR Objective: 01/26/17 10:41 Vital Signs Temperature 97.0 F L 01/26/17 06:52 Pulse Rate 49 L 01/26/17 06:52 Respiratory Rate 16 01/26/17 06:52 Blood Pressure 116/66 01/26/17 06:52 O2 Sat by Pulse Oximetry (%) EKG SINUS BRADYCARDIA 47/MIN WITH SINUS ARRHYTHMIA NO CHEST PAIN,NO SOB,NO DIZZINESS Laboratory Last Values WBC 7.5 K/mm3 (4.0-10.0) D 01/26/17 06:00 RBC 4.47 M/mm3 (4.00-5.60) 01/26/17 06:00 Hgb 13.6 GM/dL (11.7-16.9) 01/26/17 06:00 Hct 41.2 % (35.4-49) 01/26/17 06:00 MCV 92.0 fl (80-96) 01/26/17 06:00 MCHC 33.1 g/dl (32.0-35.9) 01/26/17 06:00 RDW 13.4 % (11.9-15.9) 01/26/17 06:00 Plt Count 262 K/MM3 (134-434) 01/26/17 06:00 MPV 7.8 fl (7.5-11.1) 01/26/17 06:00 Sodium 139 mmol/L (136-145) 01/26/17 06:00 Potassium 4.4 mmol/L (3.5-5.1) 01/26/17 06:00 Chloride 103 mmol/L (98-107) 01/26/17 06:00 Carbon Dioxide 29 mmol/L (21-32) 01/26/17 06:00 Anion Gap 7 (8-16) L 01/26/17 06:00 BUN 14 mg/dL (7-18) D 01/26/17 06:00 Creatinine 1.2 mg/dL (0.7-1.3) 01/26/17 06:00 Creat Clearance w eGFR > 60 (>60) 01/26/17 06:00 Random Glucose 74 mg/dL (74-106) 01/26/17 06:00 Calcium 9.4 mg/dL (8.5-10.1) 01/26/17 06:00 Total Bilirubin 0.3 mg/dL (0.2-1.0) D 01/26/17 06:00 AST 18 U/L (15-37) 01/26/17 06:00 ALT 24 U/L (12-78) 01/26/17 06:00 Alkaline Phosphatase 52 U/L (45-117) 01/26/17 06:00 Total Protein 7.0 g/dl (6.4-8.2) 01/26/17 06:00 Albumin 3.7 g/dl (3.4-5.0) 01/26/17 06:00 Urine Color Yellow 01/25/17 20:00 Urine Appearance Clear 01/25/17 20:00 Urine pH 6.0 (5.0-8.0) 01/25/17 20:00 Ur Specific [place] 1.025 (1.005-1.025) 01/25/17 20:00 Urine Protein Negative (NEGATIVE) 01/25/17 20:00 Urine Glucose (UA) Negative (NEGATIVE) 01/25/17 20:00 Urine Ketones Negative (NEGATIVE) 01/25/17 20:00 Urine Blood Negative (NEGATIVE) 01/25/17 20:00 Urine Nitrite Negative (NEGATIVE) 01/25/17 20:00 Urine Bilirubin Negative (NEGATIVE) 01/25/17 20:00 Urine Urobilinogen Negative E.U./dl (0.2-1.0) 01/25/17 20:00 Ur Leukocyte Esterase Negative (NEGATIVE) 01/25/17 20:00 LABS PENDING Assessment: 01/26/17 10:43 WITHDRAWAL SYMPTOM Plan: CONTINUE DETOX
[2017-01-26 11:14] LABS: HIV 1 & 2 AB NEGATIVE; HIV 1 AGp24 NEGATIVE
--- NOTE | 2017-01-26 12:13 | PN ---
[facility] Progress Note Note: PT WAS TRANSFERED TO [address] [place] [address] FOR SAFETY DUE TO THREE OTHER PATIENTS THREATENING TO BEAT HIM UP IN THE DAY ROOM DURING BREAKFAST. PT IS ALERT O X 3. NAD. Vital Signs 01/26/17 06:52 Temperature 97.0 F L Pulse Rate 49 L Respiratory 16 Rate Blood Pressure 116/66 Laboratory Last Values WBC 7.5 K/mm3 (4.0-10.0) D 01/26/17 06:00 RBC 4.47 M/mm3 (4.00-5.60) 01/26/17 06:00 Hgb 13.6 GM/dL (11.7-16.9) 01/26/17 06:00 Hct 41.2 % (35.4-49) 01/26/17 06:00 MCV 92.0 fl (80-96) 01/26/17 06:00 MCHC 33.1 g/dl (32.0-35.9) 01/26/17 06:00 RDW 13.4 % (11.9-15.9) 01/26/17 06:00 Plt Count 262 K/MM3 (134-434) 01/26/17 06:00 MPV 7.8 fl (7.5-11.1) 01/26/17 06:00 Sodium 139 mmol/L (136-145) 01/26/17 06:00 Potassium 4.4 mmol/L (3.5-5.1) 01/26/17 06:00 Chloride 103 mmol/L (98-107) 01/26/17 06:00 Carbon Dioxide 29 mmol/L (21-32) 01/26/17 06:00 Anion Gap 7 (8-16) L 01/26/17 06:00 BUN 14 mg/dL (7-18) D 01/26/17 06:00 Creatinine 1.2 mg/dL (0.7-1.3) 01/26/17 06:00 Creat Clearance w eGFR > 60 (>60) 01/26/17 06:00 Random Glucose 74 mg/dL (74-106) 01/26/17 06:00 Calcium 9.4 mg/dL (8.5-10.1) 01/26/17 06:00 Total Bilirubin 0.3 mg/dL (0.2-1.0) D 01/26/17 06:00 AST 18 U/L (15-37) 01/26/17 06:00 ALT 24 U/L (12-78) 01/26/17 06:00 Alkaline Phosphatase 52 U/L (45-117) 01/26/17 06:00 Total Protein 7.0 g/dl (6.4-8.2) 01/26/17 06:00 Albumin 3.7 g/dl (3.4-5.0) 01/26/17 06:00 Urine Color Yellow 01/25/17 20:00 Urine Appearance Clear 01/25/17 20:00 Urine pH 6.0 (5.0-8.0) 01/25/17 20:00 Ur Specific [place] 1.025 (1.005-1.025) 01/25/17 20:00 Urine Protein Negative (NEGATIVE) 01/25/17 20:00 Urine Glucose (UA) Negative (NEGATIVE) 01/25/17 20:00 Urine Ketones Negative (NEGATIVE) 01/25/17 20:00 Urine Blood Negative (NEGATIVE) 01/25/17 20:00 Urine Nitrite Negative (NEGATIVE) 01/25/17 20:00 Urine Bilirubin Negative (NEGATIVE) 01/25/17 20:00 Urine Urobilinogen Negative E.U./dl (0.2-1.0) 01/25/17 20:00 Ur Leukocyte Esterase Negative (NEGATIVE) 01/25/17 20:00 RPR Titer Nonreactive (NONREACTIVE) 01/26/17 06:00 HIV 1&2 Antibody Screen Negative 01/25/17 06:00 HIV P24 Antigen Negative 01/25/17 06:00 PLAN:TRANSFERRED TO [facility] ACCOMPANIED BY SECURITY.
[2017-01-26] MEDS: THIAMINE HCL 100 MG TABLET (FP) PO SCH (22:26)
[2017-01-27] MEDS: chlordiazePOXIDE HCL 25 MG CAPSULE PO SCH ×2 (05:40→11:06)
[2017-01-27] MEDS: PRENATAL VITAMINS W/ FOLIC ACID TABLET (FP) PO SCH (11:06)
[2017-01-27] MEDS: AMMONIUM LACTATE 12% LOTION 225 GM BOTTLE TP SCH ×2 (11:06→22:11)
--- NOTE | 2017-01-27 11:29 | PN ---
[facility] CIWA - CIWA Score Nausea/Vomitin Muscle Tremors: 3 Anxiety: 2 Agitation: 2 Paroxysmal Sweats: 1-Minimal Palms Moist Orientation: 0-Oriented Tacttile Disturbances: 1-Very Mild Itch/Numbness Auditory Disturbances: 1-Very Mild Visual Disturbances: 1-Very Mild Sensitivity Headache: 2-Mild CIWA-Ar Total Score: 16 S Progress Note (SOAP) Subjective: ALERT,IRRITABLE,ANXIOUS,INTERRUPTED SLEEP,TREMOR Objective: 01/27/17 11:28 Vital Signs Temperature 97.9 F 01/27/17 10:08 Pulse Rate 69 01/27/17 10:08 Respiratory Rate 18 01/27/17 10:08 Blood Pressure 130/87 01/27/17 10:08 O2 Sat by Pulse Oximetry (%) Laboratory Last Values WBC 7.5 K/mm3 (4.0-10.0) D 01/26/17 06:00 RBC 4.47 M/mm3 (4.00-5.60) 01/26/17 06:00 Hgb 13.6 GM/dL (11.7-16.9) 01/26/17 06:00 Hct 41.2 % (35.4-49) 01/26/17 06:00 MCV 92.0 fl (80-96) 01/26/17 06:00 MCHC 33.1 g/dl (32.0-35.9) 01/26/17 06:00 RDW 13.4 % (11.9-15.9) 01/26/17 06:00 Plt Count 262 K/MM3 (134-434) 01/26/17 06:00 MPV 7.8 fl (7.5-11.1) 01/26/17 06:00 Sodium 139 mmol/L (136-145) 01/26/17 06:00 Potassium 4.4 mmol/L (3.5-5.1) 01/26/17 06:00 Chloride 103 mmol/L (98-107) 01/26/17 06:00 Carbon Dioxide 29 mmol/L (21-32) 01/26/17 06:00 Anion Gap 7 (8-16) L 01/26/17 06:00 BUN 14 mg/dL (7-18) D 01/26/17 06:00 Creatinine 1.2 mg/dL (0.7-1.3) 01/26/17 06:00 Creat Clearance w eGFR > 60 (>60) 01/26/17 06:00 Random Glucose 74 mg/dL (74-106) 01/26/17 06:00 Calcium 9.4 mg/dL (8.5-10.1) 01/26/17 06:00 Total Bilirubin 0.3 mg/dL (0.2-1.0) D 01/26/17 06:00 AST 18 U/L (15-37) 01/26/17 06:00 ALT 24 U/L (12-78) 01/26/17 06:00 Alkaline Phosphatase 52 U/L (45-117) 01/26/17 06:00 Total Protein 7.0 g/dl (6.4-8.2) 01/26/17 06:00 Albumin 3.7 g/dl (3.4-5.0) 01/26/17 06:00 Urine Color Yellow 01/25/17 20:00 Urine Appearance Clear 01/25/17 20:00 Urine pH 6.0 (5.0-8.0) 01/25/17 20:00 Ur Specific [place] 1.025 (1.005-1.025) 01/25/17 20:00 Urine Protein Negative (NEGATIVE) 01/25/17 20:00 Urine Glucose (UA) Negative (NEGATIVE) 01/25/17 20:00 Urine Ketones Negative (NEGATIVE) 01/25/17 20:00 Urine Blood Negative (NEGATIVE) 01/25/17 20:00 Urine Nitrite Negative (NEGATIVE) 01/25/17 20:00 Urine Bilirubin Negative (NEGATIVE) 01/25/17 20:00 Urine Urobilinogen Negative E.U./dl (0.2-1.0) 01/25/17 20:00 Ur Leukocyte Esterase Negative (NEGATIVE) 01/25/17 20:00 RPR Titer Nonreactive (NONREACTIVE) 01/26/17 06:00 HIV 1&2 Antibody Screen Negative 01/25/17 06:00 HIV P24 Antigen Negative 01/25/17 06:00 Assessment: 01/27/17 11:29 WITHDRAWAL SYMPTOM Plan: CONTINUE DETOX
[2017-01-27] MEDS: chlordiazePOXIDE 5 MG CAPSULE PO SCH ×2 (17:36→22:10)
[2017-01-27] MEDS: diphenhydrAMINE HCL 50 MG CAPSULE PO PRN (22:10)
[2017-01-27] MEDS: THIAMINE HCL 100 MG TABLET (FP) PO SCH (22:10)
[2017-01-28] MEDS: chlordiazePOXIDE 5 MG CAPSULE PO SCH ×2 (05:47→10:31)
[2017-01-28] MEDS: PRENATAL VITAMINS W/ FOLIC ACID TABLET (FP) PO SCH (10:31)
[2017-01-28] MEDS: AMMONIUM LACTATE 12% LOTION 225 GM BOTTLE TP SCH ×2 (10:31→22:55)
--- NOTE | 2017-01-28 12:37 | PN ---
S Progress Note (SOAP) Subjective: ALERT,IRRITABLE,ANXIOUS,INTERRUPTED SLEEP Objective: 01/28/17 12:36 Vital Signs Temperature 98.1 F 01/28/17 06:16 Pulse Rate 70 01/28/17 06:16 Respiratory Rate 18 01/28/17 06:16 Blood Pressure 137/57 01/28/17 06:16 O2 Sat by Pulse Oximetry (%) Assessment: 01/28/17 12:36 WITHDRAWAL SYMPTOM Plan: CONTINUE DETOX,DISCHARGE IN AM
[2017-01-28] MEDS: chlordiazePOXIDE HCL 10 MG CAPSULE PO SCH ×2 (17:48→22:43)
[2017-01-28] MEDS: THIAMINE HCL 100 MG TABLET (FP) PO SCH (22:43)
[2017-01-28] MEDS: diphenhydrAMINE HCL 50 MG CAPSULE PO PRN (22:44)
[2017-01-29] MEDS: chlordiazePOXIDE HCL 10 MG CAPSULE PO SCH (05:52)
--- NOTE | 2017-01-29 09:08 | PN ---
S Progress Note (SOAP) Subjective: ALERT,NO COMPLAINT Objective: 01/29/17 09:07 Vital Signs Temperature 97.7 F 01/29/17 06:00 Pulse Rate 66 01/29/17 06:00 Respiratory Rate 18 01/29/17 06:00 Blood Pressure 120/57 01/29/17 06:00 O2 Sat by Pulse Oximetry (%) Assessment: 01/29/17 09:07 DETOX COMPLETED,NO WITHDRAWAL SYMPTOM Plan: DISCHARGE TODAY,FOLLOW UP WITH AFTER CARE PROGRAM ARRANGEMENT
--- NOTE | 2017-01-29 09:13 | DS ---
[facility] Detox Discharge Summary Admission Date: 01/25/17 Discharge Date: 01/29/17 - History Present History: Alcohol Dependence, Cannabis Dependence, Cocaine Dependence Additional Comments: FOLLOW UP WITH AFTER CARE PROGRAM ARRANGEMENT Pertinent Past History: SYNCOPE WEIGHT LOSS - Physical Exam Results Vital Signs: Vital Signs Temperature 97.7 F 01/29/17 06:00 Pulse Rate 66 01/29/17 06:00 Respiratory Rate 18 01/29/17 06:00 Blood Pressure 120/57 01/29/17 06:00 O2 Sat by Pulse Oximetry (%) Pertinent Admission Physical Exam Findings: WITHDRAWAL SYMPTOM - Treatment Hospital Course: Detox Protocol Followed, Detoxed Safely, Responded well, Discharged Condition Good, Rehab Referral Accepted Patient has Accepted a Rehab Referral to: [facility] - Medication Discharge Medications: Ambulatory Orders NK [No Known Home Medication] 08/20/16 - Diagnosis (1) Cannabis dependence Current Visit: No Status: Active (2) Cocaine dependence Current Visit: No Status: Active (3) Nicotine dependence Current Visit: No Status: Active (4) Weight decreased Current Visit: No Status: Active (5) Alcohol dependence with uncomplicated withdrawal Current Visit: No Status: Acute (6) Syncope Current Visit: Yes Status: Acute - AMA Did Patient Leave Against Medical Advice: No
[2017-01-29] MEDS: AMMONIUM LACTATE 12% LOTION 225 GM BOTTLE TP SCH (09:24)
[2017-01-29] MEDS: PRENATAL VITAMINS W/ FOLIC ACID TABLET (FP) PO SCH (09:24)
[2017-01-29 09:55] VITALS: BP 118/75; PULSE 59; TEMP 98.1
== END 2017-01-29 10:10 | disposition home or self-care (01) | DRG 774 ==
LOC: YASAS 11:49 → Y3N 15:22 → Y6N 01-26 10:01
PROVIDERS: ADMIT Internal Medicine; ATTEND Internal Medicine
PROC: HZ2ZZZZ Detoxification Services for Substance Abuse Treatment (ICD-10-PCS; principal; 2017-01-25)
DX: F10.230 Alcohol dependence with withdrawal, uncomplicated (principal); F14.20 Cocaine dependence, uncomplicated; F12.20 Cannabis dependence, uncomplicated; F17.210 Nicotine dependence, cigarettes, uncomplicated; I49.9 Cardiac arrhythmia, unspecified; R00.1 Bradycardia, unspecified; Z87.898 Personal history of other specified conditions; Z86.79 Personal history of other diseases of the circulatory system
CPT/HCPCS: 36415; 80053; 81003; 85027; 86593; 87389; 93005; 93010

== ENCOUNTER 2017-05-15 11:12 | Inpatient (IN) | payer BC ==
[2017-05-15 11:32] VITALS: BMI 20.9
--- NOTE | 2017-05-15 13:33 | HP ---
CIWA Score - CIWA Score Nausea/Vomitin Muscle Tremors: 3 Anxiety: 3 Agitation: 3 Paroxysmal Sweats: 2 Orientation: 0-Oriented Tacttile Disturbances: 2-Mild Itch/Numbness/Burn Auditory Disturbances: 2-Mild Harshness/Frighten Visual Disturbances: 2-Mild Sensitivity Headache: 2-Mild CIWA-Ar Total Score: 22 Admission ROS BHS - HPI Chief Complaint: I NEED HELP TO STOP DRINKING ALCOHOL,COCAINE,MARIJUANA DEPENDENCE, Allergies/Adverse Reactions: Allergies Allergy/AdvReac Type Severity Reaction Status Date / Time No Known Allergies Allergy Verified 05/15/17 13:23 History of Present Illness: THIS 32 YEARS OLD MALE WITH ALCOHOL,COCAINE AND MARIJUANA DEPENDENCE,SEEKING DETOX,LAST TREATMENT 01/25/17 TO 01/29/17 WEIGHT LOSS NICOTINE DEPENDENCE LOW BACK PAIN LONGEST PERIOD OF SOBRIETY 2 YEARS Exam Limitations: No Limitations - Ebola screening Have you traveled outside of the country in the last 21 days: No Have you had contact with anyone from an Ebola affected area: No Have you been sick,other than usual withdrawal symptoms: No Do you have a fever: No - Review of Systems Constitutional: Chills, Loss of Appetite, Malaise, Night Sweats, Changes in sleep, Weakness, Unintentional Wgt. Loss EENT: reports: Nose Congestion Respiratory: reports: No Symptoms reported Cardiac: reports: No Symptoms Reported GI: reports: Nausea, Vomiting, Abdominal cramping : reports: No Symptoms Reported Musculoskeletal: reports: Back Pain, Muscle Pain Integumentary: reports: Dryness Neuro: reports: Headache, Tremors Endocrine: reports: No Symptoms Reported Hematology: reports: No Symptoms Reported Psychiatric: reports: No Sypmtoms Reported Other Systems: Reviewed and Negative Patient History - Patient Medical History Hx Anemia: No Hx Asthma: No Hx Chronic Obstructive Pulmonary Disease (COPD): No Hx Cancer: No Hx Cardiac Disorders: No Hx Congestive Heart Failure: No Hx Hypertension: No Hx Hypercholesterolemia: No Hx Pacemaker: No HX Cerebrovascular Accident: No Hx Seizures: No Hx Dementia: No Hx Diabetes: No Hx Gastrointestinal Disorders: No Hx Liver Disease: No Hx Genitourinary Disorders: No Hx Sexually Transmitted Disorders: No Hx Renal Disease (ESRD): No Hx Thyroid Disease: No Hx Human Immunodeficiency Virus (HIV): No (LAST 2016 NEGATIVE) Hx Hepatitis C: No Hx Depression: No Hx Suicide Attempt: No Hx Bipolar Disorder: No Hx Schizophrenia: No Other Medical History: NO SUICIDAL,NO HOMICIDAL - Patient Surgical History Past Surgical History: No Hx Neurologic Surgery: No Hx Cataract Extraction: No Hx Cardiac Surgery: No Hx Lung Surgery: No Hx Breast Surgery: No Hx Breast Biopsy: No Hx Abdominal Surgery: No Hx Appendectomy: No Hx Cholecystectomy: No Hx Genitourinary Surgery: No Hx Section: No Hx Orthopedic Surgery: No Anesthesia Reaction: No - PPD History Previous Implant?: Yes Documented Results: Negative w/proof Date: 08/22/16 Results: 0 mm PPD to be Administered?: No - Smoking Cessation Smoking history: Current every day smoker Have you smoked in the past 12 months: No Aproximately how many cigarettes per day: 10 Cigars Per Day: 0 Hx Chewing Tobacco Use: No Initiated information on smoking cessation: Yes 'Breaking Loose' booklet given: 05/15/17 - Substance & Tx. History Hx Alcohol Use: Yes Hx Substance Use: Yes Substance Use Type: Alcohol, Cocaine Hx Substance Use Treatment: Yes ([facility] 01/25/17 TO 01/29/17) - Substances Abused Alcohol Route: Oral Frequency: Daily Amount used: 1 [place] Age of first use: 17 Date of Last Use: 05/14/17 Cocaine Route: Smoking Frequency: Daily Amount used: $40 Age of first use: 16 Date of Last Use: 05/14/17 Family Disease History - Family Disease History Family Disease History: Diabetes: Grandparent (HTN), Heart Disease: Grandparent , Other: Mother (COCAINE & ALCOHOL) Admission Physical Exam S - Vital Signs Vital Signs: Vital Signs - 24 hr 05/15/17 11:30 Temperature 98.3 F Pulse Rate 50 L Respiratory 18 Rate Blood Pressure 123/65 - Physical General Appearance: Yes: Moderate Distress, Tremorous, Irritable, Sweating, Anxious HEENTM: Yes: Hearing grossly Normal, Normal ENT Inspection, BREANNE, Pharynx Normal Respiratory: Yes: Lungs Clear, Normal Breath Sounds, No Respiratory Distress Neck: Yes: Within Normal Limits Breast: Yes: Within Normal Limits Cardiology: Yes: Within Normal Limits, Regular Rhythm, Regular Rate, S1, S2 Abdominal: Yes: Within Normal Limits, Normal Bowel Sounds, Non Tender, Flat, Soft Genitourinary: Yes: Within Normal Limits Back: Yes: Within Normal Limits, Normal Inspection, Muscle Spasm Musculoskeletal: Yes: full range of Motion, Back pain, Muscle Pain Extremities: Yes: Within Normal Limits, Tremors Neurological: Yes: material handling technician II-XII NML intact, Fully Oriented, Alert, Motor Strength 5/5 Integumentary: Yes: Dry Lymphatic: Yes: Within Normal Limits - Diagnostic (1) Alcohol dependence with uncomplicated withdrawal Current Visit: No Status: Acute (2) Cannabis dependence Current Visit: No Status: Active (3) Cocaine dependence Current Visit: No Status: Active (4) Nicotine dependence Current Visit: No Status: Active (5) Weight decreased Current Visit: No Status: Active (6) Dry skin Current Visit: No Status: Acute (7) Low back pain Current Visit: Yes Status: Acute Cleared for Admission [facility] - Detox or Rehab [facility] Level of Care: Medically Managed Detox Regimen/Protocol: Librium [facility] Breath Alcohol Content Breath Alcohol Content: 0 Urine Drug Screen - Results Drug Screen Negative: No Urine Drug Screen Results: THC-Marijuana, VINCENT-Cocaine
[2017-05-15] MEDS ORDERED: ACETAMINOPHEN 325 MG TABLET (FP) PO PRN (13:45)
[2017-05-15] MEDS ORDERED: MENTHOL/PHENOL 1 EACH UD MM PRN (13:45)
[2017-05-15] MEDS ORDERED: MAGNESIUM CITRATE 300 ML BOTTLE PO PRN (13:45)
[2017-05-15] MEDS ORDERED: LOPERAMIDE HCL 2 MG CAPSULE PO PRN (13:45)
[2017-05-15] MEDS ORDERED: MAG HYDROX/AL HYDROX/SIMETH 30 ML UNIT-DOSE CUP PO PRN (13:45)
[2017-05-15] MEDS ORDERED: chlordiazePOXIDE HCL 25 MG CAPSULE PO PRN (13:45)
[2017-05-15] MEDS ORDERED: MAGNESIUM HYDROX 2400MG/30ML ORAL SUSPENSION 30 ML CUP PO PRN (13:45)
[2017-05-15] MEDS ORDERED: P-EPHED 60MG/TRIPROLIDI 2.5MG TABLET PO PRN (13:45)
[2017-05-15] MEDS ORDERED: guaiFENesin/D-METHORPHAN HB 10 ML UNIT-DOSE CUPS PO PRN (13:45)
[2017-05-15] MEDS ORDERED: hydrOXYzine PAMOATE 50 MG CAPSULE (FP) PO PRN (13:45)
[2017-05-15] MEDS ORDERED: IBUPROFEN 400 MG TABLET (FP) PO PRN (13:45)
[2017-05-15] MEDS ORDERED: chlordiazePOXIDE HCL 25 MG CAPSULE PO ONE (13:57)
[2017-05-15] MEDS: NICOTINE 21 MG/24 HOURS TOPICAL PATCH TD SCH (14:10)
[2017-05-15 16:27] LABS: URINE APPEARANCE SLCLOUDY; URINE BILIRUBIN NEGATIVE (NEGATIVE); URINE BLOOD NEGATIVE (NEGATIVE); URINE COLOR YELLOW; URINE GLUCOSE (UA) NEGATIVE (NEGATIVE); URINE KETONE NEGATIVE (NEGATIVE); URINE LEUK ESTERASE NEGATIVE (NEGATIVE); URINE NITRITE NEGATIVE (NEGATIVE); URINE PROTEIN NEGATIVE (NEGATIVE); URINE UROBILINOGEN NEGATIVE mg/dL (0.2-1.0)
[2017-05-15] MEDS: chlordiazePOXIDE HCL 25 MG CAPSULE PO SCH ×2 (17:13→22:21)
[2017-05-15] MEDS: THIAMINE HCL 100 MG TABLET (FP) PO SCH (22:21)
[2017-05-15] MEDS: diphenhydrAMINE HCL 50 MG CAPSULE PO PRN (22:22)
[2017-05-16] MEDS: chlordiazePOXIDE HCL 25 MG CAPSULE PO SCH ×4 (06:13→22:25)
[2017-05-16] MEDS: PRENATAL VITAMINS W/ FOLIC ACID TABLET (FP) PO SCH (10:26)
[2017-05-16] MEDS: NICOTINE 21 MG/24 HOURS TOPICAL PATCH TD SCH (10:26)
--- NOTE | 2017-05-16 10:46 | PN ---
S CIWA - CIWA Score Nausea/Vomitin-No Nausea/No Vomiting Muscle Tremors: 4-Moderate,w/Arms Extend Anxiety: 4-Mod. Anxious/Guarded Agitation: 4-Moderately Restless Paroxysmal Sweats: 1-Minimal Palms Moist Orientation: 0-Oriented Tacttile Disturbances: 3-Moderate Itch/Numb/Burn Auditory Disturbances: 0-None Visual Disturbances: 0-None Headache: 0-None Present CIWA-Ar Total Score: 16 [facility] Progress Note (SOAP) Subjective: ANXIETY, SWEATS, TREMORS, INTERMITTENT SLEEP. Objective: 05/16/17 10:47 Vital Signs Temperature 97.8 F 05/16/17 09:29 Pulse Rate 66 05/16/17 09:29 Respiratory Rate 20 05/16/17 09:29 Blood Pressure 124/70 05/16/17 09:29 O2 Sat by Pulse Oximetry (%) Laboratory Last Values Urine Color Yellow 05/15/17 15:00 Urine Appearance Slcloudy 05/15/17 15:00 Urine pH 6.0 (5.0-8.0) 05/15/17 15:00 Ur Specific [place] 1.020 (1.005-1.025) 05/15/17 15:00 Urine Protein Negative (NEGATIVE) 05/15/17 15:00 Urine Glucose (UA) Negative (NEGATIVE) 05/15/17 15:00 Urine Ketones Negative (NEGATIVE) 05/15/17 15:00 Urine Blood Negative (NEGATIVE) 05/15/17 15:00 Urine Nitrite Negative (NEGATIVE) 05/15/17 15:00 Urine Bilirubin Negative (NEGATIVE) 05/15/17 15:00 Urine Urobilinogen Negative mg/dL (0.2-1.0) 05/15/17 15:00 Assessment: 05/16/17 10:47 WITHDRAWAL SX Plan: CONTINUE DETOX
[2017-05-16] MEDS ORDERED: FLU VACCINE QUAD 60 MCG/0.5 ML (MDV 17-18) IM ONE (12:00)
[2017-05-16] MEDS: THIAMINE HCL 100 MG TABLET (FP) PO SCH (22:24)
[2017-05-16] MEDS: diphenhydrAMINE HCL 50 MG CAPSULE PO PRN (22:25)
[2017-05-17] MEDS: chlordiazePOXIDE HCL 25 MG CAPSULE PO SCH ×2 (05:54→10:25)
--- NOTE | 2017-05-17 09:51 | EKG ---
Test Reason : Blood Pressure : / mmHG Vent. Rate : 064 BPM Atrial Rate : 064 BPM P-R Int : 190 ms QRS Dur : 092 ms QT Int : 418 ms P-R-T Axes : 058 056 042 degrees QTc Int : 431 ms NORMAL SINUS RHYTHM ST ELEVATION, CONSIDER EARLY REPOLARIZATION, PERICARDITIS, OR INJURY ABNORMAL ECG WHEN COMPARED WITH ECG OF 25-JAN-2017 15:59, NO SIGNIFICANT CHANGE WAS FOUND Confirmed by MARISSA ZAVALA, MILLI ([id number]) on 05/17/2017 9:50:39 AM Referred By: Dylan Miranda Confirmed By:MILLI ANN MD
[2017-05-17 10:00] LABS: MCH 29.6 pg (25.7-33.7); MCHC 32.9 g/dl (32.0-35.9); MEAN CELL VOLUME 90.1 fl (80-96); MEAN PLT VOLUME 7.9 fl (7.5-11.1); PLATELET COUNT 238 K/MM3 (134-434); RDW 13.1 % (11.9-15.9); WHITE BLOOD COUNT 5.3 K/mm3 (4.0-10.0)
[2017-05-17] MEDS: PRENATAL VITAMINS W/ FOLIC ACID TABLET (FP) PO SCH (10:23)
[2017-05-17] MEDS: NICOTINE 21 MG/24 HOURS TOPICAL PATCH TD SCH (10:23)
[2017-05-17 11:10] LABS: ALBUMIN 3.2 g/dl (3.4-5.0); ALK PHOS 48 U/L (45-117); ANION GAP 7 (8-16); CALCIUM 8.8 mg/dL (8.5-10.1); CO2 29 mmol/L (21-32); CREATININE 1.1 mg/dL (0.7-1.3); GLUCOSE,RANDOM 87 mg/dL (74-106); SGOT/AST 11 U/L (15-37); SGPT/ALT 21 U/L (12-78); TOT PROT 6.2 g/dl (6.4-8.2)
[2017-05-17 11:11] LABS: BILIRUBIN,TOTAL 0.6 mg/dL (0.2-1.0)
[2017-05-17 12:00] LABS: HIV 1 & 2 AB NEGATIVE; HIV 1 AGp24 NEGATIVE
--- NOTE | 2017-05-17 13:40 | PN ---
S CIWA - CIWA Score Nausea/Vomitin-Mild Nausea/No Vomiting (& diarrhea) Muscle Tremors: 3 Anxiety: 4-Mod. Anxious/Guarded Agitation: 3 Paroxysmal Sweats: 3 Orientation: 0-Oriented Tacttile Disturbances: 0-None Auditory Disturbances: 0-None Visual Disturbances: 0-None Headache: 0-None Present CIWA-Ar Total Score: 14 BHS Progress Note (SOAP) Subjective: Sweating,anxiety,tremors,interrupted sleep,restless Objective: 05/17/17 13:36 Vital Signs - 8 hr 05/17/17 05/17/17 06:37 09:34 Temperature 97 F L 97 F L Pulse Rate 43 L 54 L Respiratory 18 20 Rate Blood Pressure 106/62 117/78 Laboratory Tests 05/15/17 05/16/17 05/17/17 15:00 06:00 07:00 WBC 5.3 RBC 4.51 Hgb 13.4 Hct 40.6 MCV 90.1 MCH 29.6 MCHC 32.9 RDW 13.1 Plt Count 238 MPV 7.9 Sodium Potassium Chloride Carbon Dioxide Anion Gap BUN Creatinine Creat Clearance w eGFR Random Glucose Calcium Total Bilirubin AST ALT Alkaline Phosphatase Total Protein Albumin Urine Color Yellow Urine Appearance Slcloudy Urine pH 6.0 Ur Specific [place] 1.020 Urine Protein Negative Urine Glucose (UA) Negative Urine Ketones Negative Urine Blood Negative Urine Nitrite Negative Urine Bilirubin Negative Urine Urobilinogen Negative RPR Titer HIV 1&2 Antibody Screen Negative HIV P24 Antigen Negative 05/17/17 05/17/17 07:00 07:00 WBC RBC Hgb Hct MCV MCH MCHC RDW labsPlt Count MPV Sodium 139 Potassium 4.2 Chloride 103 Carbon Dioxide 29 Anion Gap 7 L BUN 9 D Creatinine 1.1 Creat Clearance w eGFR > 60 Random Glucose 87 Calcium 8.8 Total Bilirubin 0.6 D AST 11 L D ALT 21 Alkaline Phosphatase 48 Total Protein 6.2 L Albumin 3.2 L Urine Color Urine Appearance Urine pH Ur Specific [place] Urine Protein Urine Glucose (UA) Urine Ketones Urine Blood Urine Nitrite Urine Bilirubin Urine Urobilinogen RPR Titer Nonreactive HIV 1&2 Antibody Screen HIV P24 Antigen labs noted Assessment: 05/17/17 13:39 Withdrawal sx. Plan: Continue detox
[2017-05-17] MEDS: MINERAL OIL/PETROLAT/WATER TOPICAL CREAM 113 GM JAR TP SCH ×2 (14:48→22:17)
[2017-05-17] MEDS: chlordiazePOXIDE 5 MG CAPSULE PO SCH ×2 (17:22→22:17)
[2017-05-17] MEDS: THIAMINE HCL 100 MG TABLET (FP) PO SCH (22:17)
[2017-05-17] MEDS: diphenhydrAMINE HCL 50 MG CAPSULE PO PRN (22:18)
[2017-05-18] MEDS: chlordiazePOXIDE 5 MG CAPSULE PO SCH ×2 (05:43→10:51)
[2017-05-18] MEDS: PRENATAL VITAMINS W/ FOLIC ACID TABLET (FP) PO SCH (10:50)
[2017-05-18] MEDS: NICOTINE 21 MG/24 HOURS TOPICAL PATCH TD SCH (10:50)
[2017-05-18] MEDS: MINERAL OIL/PETROLAT/WATER TOPICAL CREAM 113 GM JAR TP SCH (10:51)
--- NOTE | 2017-05-18 12:18 | PN ---
[facility] Progress Note (SOAP) Subjective: Sweating. Objective: PT. A & O X 3, OBSERVED AMBULATING ON UNIT. NO ACUTE DISTRESS. 05/18/17 12:16 Vital Signs Temperature 98.6 F 05/18/17 09:37 Pulse Rate 64 05/18/17 09:37 Respiratory Rate 18 05/18/17 09:37 Blood Pressure 117/69 05/18/17 09:37 O2 Sat by Pulse Oximetry (%) Laboratory Tests 05/15/17 05/16/17 05/17/17 15:00 06:00 07:00 WBC 5.3 RBC 4.51 Hgb 13.4 Hct 40.6 MCV 90.1 MCH 29.6 MCHC 32.9 RDW 13.1 Plt Count 238 MPV 7.9 Sodium Potassium Chloride Carbon Dioxide Anion Gap BUN Creatinine Creat Clearance w eGFR Random Glucose Calcium Total Bilirubin AST ALT Alkaline Phosphatase Total Protein Albumin Urine Color Yellow Urine Appearance Slcloudy Urine pH 6.0 Ur Specific [place] 1.020 Urine Protein Negative Urine Glucose (UA) Negative Urine Ketones Negative Urine Blood Negative Urine Nitrite Negative Urine Bilirubin Negative Urine Urobilinogen Negative RPR Titer HIV 1&2 Antibody Screen Negative HIV P24 Antigen Negative 05/17/17 05/17/17 07:00 07:00 WBC RBC Hgb Hct MCV MCH MCHC RDW Plt Count MPV Sodium 139 Potassium 4.2 Chloride 103 Carbon Dioxide 29 Anion Gap 7 L BUN 9 D Creatinine 1.1 Creat Clearance w eGFR > 60 Random Glucose 87 Calcium 8.8 Total Bilirubin 0.6 D AST 11 L D ALT 21 Alkaline Phosphatase 48 Total Protein 6.2 L Albumin 3.2 L Urine Color Urine Appearance Urine pH Ur Specific [place] Urine Protein Urine Glucose (UA) Urine Ketones Urine Blood Urine Nitrite Urine Bilirubin Urine Urobilinogen RPR Titer Nonreactive HIV 1&2 Antibody Screen HIV P24 Antigen labs noted. Assessment: 05/18/17 12:17 WITHDRAWAL SYMPTOMS. Plan: CONTINUE DETOX. INCREASE DAILY PO FLUID INTAKE.
[2017-05-18] MEDS: chlordiazePOXIDE HCL 10 MG CAPSULE PO SCH ×2 (17:25→22:36)
[2017-05-18] MEDS: THIAMINE HCL 100 MG TABLET (FP) PO SCH (22:36)
[2017-05-18] MEDS: diphenhydrAMINE HCL 50 MG CAPSULE PO PRN (22:36)
[2017-05-19] MEDS: MINERAL OIL/PETROLAT/WATER TOPICAL CREAM 113 GM JAR TP SCH (00:15)
[2017-05-19 06:26] VITALS: BP 114/68; PULSE 45; TEMP 97.1
[2017-05-19] MEDS: chlordiazePOXIDE HCL 10 MG CAPSULE PO SCH (07:45)
--- NOTE | 2017-05-19 10:53 | DS ---
[facility] Detox Discharge Summary Admission Date: 05/15/17 Discharge Date: 05/19/17 - History Present History: Alcohol Dependence, Cannabis Dependence, Cocaine Dependence Pertinent Past History: Unremarkable - Physical Exam Results Vital Signs: Vital Signs Temperature 97.1 F L 05/19/17 06:26 Pulse Rate 45 L 05/19/17 06:26 Respiratory Rate 18 05/19/17 06:26 Blood Pressure 114/68 05/19/17 06:26 O2 Sat by Pulse Oximetry (%) Pertinent Admission Physical Exam Findings: Withdrawal sx Laboratory Last Values WBC 5.3 K/mm3 (4.0-10.0) 05/17/17 07:00 RBC 4.51 M/mm3 (4.00-5.60) 05/17/17 07:00 Hgb 13.4 GM/dL (11.7-16.9) 05/17/17 07:00 Hct 40.6 % (35.4-49) 05/17/17 07:00 MCV 90.1 fl (80-96) 05/17/17 07:00 MCH 29.6 pg (25.7-33.7) 05/17/17 07:00 MCHC 32.9 g/dl (32.0-35.9) 05/17/17 07:00 RDW 13.1 % (11.9-15.9) 05/17/17 07:00 Plt Count 238 K/MM3 (134-434) 05/17/17 07:00 MPV 7.9 fl (7.5-11.1) 05/17/17 07:00 Sodium 139 mmol/L (136-145) 05/17/17 07:00 Potassium 4.2 mmol/L (3.5-5.1) 05/17/17 07:00 Chloride 103 mmol/L (98-107) 05/17/17 07:00 Carbon Dioxide 29 mmol/L (21-32) 05/17/17 07:00 Anion Gap 7 (8-16) L 05/17/17 07:00 BUN 9 mg/dL (7-18) D 05/17/17 07:00 Creatinine 1.1 mg/dL (0.7-1.3) 05/17/17 07:00 Creat Clearance w eGFR > 60 (>60) 05/17/17 07:00 Random Glucose 87 mg/dL (74-106) 05/17/17 07:00 Calcium 8.8 mg/dL (8.5-10.1) 05/17/17 07:00 Total Bilirubin 0.6 mg/dL (0.2-1.0) D 05/17/17 07:00 AST 11 U/L (15-37) L D 05/17/17 07:00 ALT 21 U/L (12-78) 05/17/17 07:00 Alkaline Phosphatase 48 U/L (45-117) 05/17/17 07:00 Total Protein 6.2 g/dl (6.4-8.2) L 05/17/17 07:00 Albumin 3.2 g/dl (3.4-5.0) L 05/17/17 07:00 Urine Color Yellow 05/15/17 15:00 Urine Appearance Slcloudy 05/15/17 15:00 Urine pH 6.0 (5.0-8.0) 05/15/17 15:00 Ur Specific [place] 1.020 (1.005-1.025) 05/15/17 15:00 Urine Protein Negative (NEGATIVE) 05/15/17 15:00 Urine Glucose (UA) Negative (NEGATIVE) 05/15/17 15:00 Urine Ketones Negative (NEGATIVE) 05/15/17 15:00 Urine Blood Negative (NEGATIVE) 05/15/17 15:00 Urine Nitrite Negative (NEGATIVE) 05/15/17 15:00 Urine Bilirubin Negative (NEGATIVE) 05/15/17 15:00 Urine Urobilinogen Negative mg/dL (0.2-1.0) 05/15/17 15:00 RPR Titer Nonreactive (NONREACTIVE) 05/17/17 07:00 HIV 1&2 Antibody Screen Negative 05/16/17 06:00 HIV P24 Antigen Negative 05/16/17 06:00 Labs noted - Treatment Hospital Course: Detox Protocol Followed, Detoxed Safely, Responded well, Discharged Condition Good, Rehab Referral Accepted Patient has Accepted a Rehab Referral to: [facility] - Medication Discharge Medications: Ambulatory Orders NK [No Known Home Medication] 08/20/16 - Diagnosis (1) Alcohol dependence with uncomplicated withdrawal Status: Acute (2) Cannabis dependence, uncomplicated Status: Acute (3) Cocaine dependence, uncomplicated Status: Acute (4) Nicotine dependence Status: Acute Qualifiers: Nicotine product type: cigarettes Substance use status: in withdrawal Qualified Code(s): F17.213 - Nicotine dependence, cigarettes, with withdrawal - AMA Did Patient Leave Against Medical Advice: No
== END 2017-05-19 09:05 | disposition home or self-care (01) | DRG 774 ==
LOC: YASAS 11:12 → Y3N 13:42
PROVIDERS: ADMIT Internal Medicine; ATTEND Internal Medicine
PROC: HZ2ZZZZ Detoxification Services for Substance Abuse Treatment (ICD-10-PCS; principal; 2017-05-15)
DX: F10.230 Alcohol dependence with withdrawal, uncomplicated (principal); F14.20 Cocaine dependence, uncomplicated; F12.20 Cannabis dependence, uncomplicated; F17.213 Nicotine dependence, cigarettes, with withdrawal; L85.3 Xerosis cutis; M54.5 Low back pain; R63.4 Abnormal weight loss; Z68.21 Body mass index [BMI] 21.0-21.9, adult
CPT/HCPCS: 36415; 80053; 81003; 85027; 86593; 87389; 90688; 93005; 93010; G0008

== ENCOUNTER 2018-06-26 11:44 | Inpatient (IN) | payer BC ==
[2018-06-26 14:58] VITALS: BMI 19.1
--- NOTE | 2018-06-26 15:21 | HP ---
CIWA Score - CIWA Score Nausea/Vomitin Muscle Tremors: 2 Anxiety: 2 Agitation: 2 Paroxysmal Sweats: 1-Minimal Palms Moist Orientation: 0-Oriented Tacttile Disturbances: 1-Very Mild Itch/Numbness Auditory Disturbances: 1-Very Mild Visual Disturbances: 0-None Headache: 2-Mild CIWA-Ar Total Score: 13 CIWA Score Nausea/Vomitin Muscle Tremors: 2 Anxiety: 2 Agitation: 2 Paroxysmal Sweats: 1-Minimal Palms Moist Orientation: 0-Oriented Tacttile Disturbances: 1-Very Mild Itch/Numbness Auditory Disturbances: 1-Very Mild Visual Disturbances: 0-None Headache: 2-Mild CIWA-Ar Total Score: 13 - Admission Criteria Patient presents the following: CIWA greater than 12 Admission Criteria Met: Admission criteria met Admission ROS BHS - HPI Chief Complaint: i need help to stop drinking alcohol,cocaine,marijuana ,also abuse heroin Allergies/Adverse Reactions: Allergies Allergy/AdvReac Type Severity Reaction Status Date / Time No Known Allergies Allergy Verified 06/26/18 15:10 History of Present Illness: his 33 years old male with alcohol,cocaine,marijuana dependence,heroin abused, nicotine dependence weight loss last detox p05/05/17 to 05/19/17 [facility] no significant period of sobriety Exam Limitations: No Limitations - Ebola screening Have you traveled outside of the country in the last 21 days: No Have you had contact with anyone from an Ebola affected area: No Have you been sick,other than usual withdrawal symptoms: No Do you have a fever: No - Review of Systems Constitutional: Loss of Appetite, Malaise, Night Sweats, Changes in sleep, Weakness, Unintentional Wgt. Loss EENT: reports: Tearing, Nose Congestion Respiratory: reports: No Symptoms reported Cardiac: reports: No Symptoms Reported GI: reports: Nausea, Poor Appetite, Abdominal cramping : reports: No Symptoms Reported Musculoskeletal: reports: Back Pain, Muscle Pain Integumentary: reports: Dryness Neuro: reports: Headache, Tremors Endocrine: reports: No Symptoms Reported Hematology: reports: No Symptoms Reported Psychiatric: reports: No Sypmtoms Reported, Judgement Intact, Mood/Affect Appropiate, Orientated x3 Patient History - Patient Medical History Hx Anemia: No Hx Asthma: No Hx Chronic Obstructive Pulmonary Disease (COPD): No Hx Cancer: No Hx Cardiac Disorders: No Hx Congestive Heart Failure: No Hx Hypertension: No Hx Hypercholesterolemia: No Hx Pacemaker: No HX Cerebrovascular Accident: No Hx Seizures: No Hx Dementia: No Hx Diabetes: No Hx Gastrointestinal Disorders: No Hx Liver Disease: No Hx Genitourinary Disorders: No Hx Sexually Transmitted Disorders: No Hx Renal Disease (ESRD): No Hx Thyroid Disease: No Hx Human Immunodeficiency Virus (HIV): No (LAST 2017 NEGATIVE) Hx Hepatitis C: No Hx Depression: No Hx Suicide Attempt: No Hx Bipolar Disorder: No Hx Schizophrenia: No Other Medical History: no suicidal,no homicidal - Patient Surgical History Past Surgical History: No Hx Neurologic Surgery: No Hx Cataract Extraction: No Hx Cardiac Surgery: No Hx Lung Surgery: No Hx Breast Surgery: No Hx Breast Biopsy: No Hx Abdominal Surgery: No Hx Appendectomy: No Hx Cholecystectomy: No Hx Genitourinary Surgery: No Hx Section: No Hx Orthopedic Surgery: No Anesthesia Reaction: No - PPD History Previous Implant?: Yes Documented Results: Negative w/o proof Implanted On Prior [facility] Admission?: Yes Date: 08/22/16 Results: 0 mm PPD to be Administered?: Yes - Smoking Cessation Smoking history: Current every day smoker Have you smoked in the past 12 months: No Aproximately how many cigarettes per day: 10 Cigars Per Day: 0 Hx Chewing Tobacco Use: No Initiated information on smoking cessation: Yes 'Breaking Loose' booklet given: 06/26/18 - Substance & Tx. History Hx Alcohol Use: Yes Hx Substance Use: Yes Substance Use Type: Alcohol, Cocaine, Heroin, Marijuana Hx Substance Use Treatment: Yes ([facility] 04/14/17 to 05/19/17) - Substances Abused Alcohol Route: Oral Frequency: Daily Amount used: 1-2 pints vodka Age of first use: 17 Date of Last Use: 06/25/18 Cocaine Route: Inhalation Frequency: Daily Amount used: $30 Age of first use: 16 Date of Last Use: 06/25/18 Heroin Route: Inhalation Frequency: 3-6 times per week Amount used: 3 bags Age of first use: 18 Date of Last Use: 06/25/18 Marijuana/Hashish Route: Smoking Frequency: Daily Amount used: $60 Age of first use: 14 Date of Last Use: 06/25/18 Family Disease History - Family Disease History Family Disease History: Diabetes: Grandparent (HTN), Heart Disease: Grandparent , Other: Mother (COCAINE & ALCOHOL) Admission Physical Exam [facility] - Vital Signs Vital Signs: Vital Signs - 24 hr 06/26/18 14:56 Temperature 98.9 F Pulse Rate 78 Respiratory 18 Rate Blood Pressure 133/73 - Physical General Appearance: Yes: Moderate Distress, Tremorous, Irritable, Sweating, Anxious HEENTM: Yes: Normal ENT Inspection, BREANNE, Pharynx Normal Respiratory: Yes: Lungs Clear, Normal Breath Sounds, No Respiratory Distress Neck: Yes: Supple, Trachea in good position Breast: Yes: Within Normal Limits Cardiology: Yes: Within Normal Limits, Regular Rhythm, Regular Rate, S1, S2 Abdominal: Yes: Within Normal Limits, Normal Bowel Sounds, Non Tender, Soft Genitourinary: Yes: Within Normal Limits Back: Yes: Muscle Spasm Musculoskeletal: Yes: full range of Motion, Back pain, Joint Stiffness, Muscle Pain Extremities: Yes: Normal Range of Motion, Tremors 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, Alert, Motor Strength 5/5 Integumentary: Yes: Dry Lymphatic: Yes: Within Normal Limits - Diagnostic (1) Weight decreased Current Visit: No Status: Active (2) Alcohol dependence with uncomplicated withdrawal Current Visit: No Status: Acute (3) Cannabis dependence, uncomplicated Current Visit: No Status: Acute (4) Cocaine dependence, uncomplicated Current Visit: No Status: Acute (5) Nicotine dependence Current Visit: No Status: Acute Qualifiers: Nicotine product type: cigarettes Substance use status: in withdrawal Qualified Code(s): F17.213 - Nicotine dependence, cigarettes, with withdrawal (6) Heroin abuse Current Visit: Yes Status: Acute Cleared for Admission [facility] - Detox or Rehab [facility] Level of Care: Medically Managed Detox Regimen/Protocol: Librium (patient did not want methadone for heroin abused) [facility] Breath Alcohol Content Breath Alcohol Content: 0 Urine Drug Screen - Results Drug Screen Negative: No Urine Drug Screen Results: THC-Marijuana, VINCENT-Cocaine, OPI-Opiates
[2018-06-26] MEDS ORDERED: MENTHOL/PHENOL 1 EACH UD MM PRN (15:29)
[2018-06-26] MEDS ORDERED: guaiFENesin/D-METHORPHAN HB 10 ML UNIT-DOSE CUPS PO PRN (15:29)
[2018-06-26] MEDS ORDERED: IBUPROFEN 400 MG TABLET (FP) PO PRN (15:29)
[2018-06-26] MEDS ORDERED: LOPERAMIDE HCL 2 MG CAPSULE PO PRN (15:29)
[2018-06-26] MEDS ORDERED: hydrOXYzine PAMOATE 25 MG CAPSULE (FP) PO PRN (15:29)
[2018-06-26] MEDS ORDERED: ACETAMINOPHEN 325 MG TABLET (FP) PO PRN (15:29)
[2018-06-26] MEDS ORDERED: P-EPHED 60MG/TRIPROLIDI 2.5MG TABLET PO PRN (15:29)
[2018-06-26] MEDS ORDERED: NICOTINE POLACRILEX 2 MG GUM BC PRN (15:29)
[2018-06-26] MEDS ORDERED: chlordiazePOXIDE HCL 25 MG CAPSULE PO PRN (15:29)
[2018-06-26] MEDS ORDERED: MAGNESIUM HYDROX 2400MG/30ML ORAL SUSPENSION 30 ML CUP PO PRN (15:29)
[2018-06-26] MEDS ORDERED: MAGNESIUM CITRATE 300 ML BOTTLE PO PRN (15:29)
[2018-06-26] MEDS ORDERED: MAG HYDROX/AL HYDROX/SIMETH 30 ML UNIT-DOSE CUP PO PRN (15:29)
[2018-06-26] MEDS ORDERED: CYCLOBENZAPRINE HCL 10 MG TABLET (FP) PO PRN (15:32)
[2018-06-26] MEDS: NICOTINE 21 MG/24 HOURS TOPICAL PATCH TD SCH (17:47)
[2018-06-26] MEDS: chlordiazePOXIDE HCL 25 MG CAPSULE PO SCH ×2 (17:47→22:35)
[2018-06-26] MEDS ORDERED: MELATONIN 5 MG TABLETS PO PRN (22:00)
[2018-06-26] MEDS: cloNIDine HCL 0.1 MG TABLET PO SCH (22:35)
[2018-06-26] MEDS: THIAMINE HCL 100 MG TABLET (FP) PO SCH (22:35)
[2018-06-27 01:25] LABS: URINE APPEARANCE CLEAR; URINE BILIRUBIN NEGATIVE (<2.0 mg/dL); URINE COLOR YELLOW; URINE GLUCOSE (UA) NEGATIVE (NEGATIVE); URINE KETONE NEGATIVE (NEGATIVE); URINE LEUK ESTERASE NEGATIVE (NEGATIVE); URINE NITRITE NEGATIVE (NEGATIVE); URINE PROTEIN NEGATIVE (NEGATIVE)
[2018-06-27] MEDS: chlordiazePOXIDE HCL 25 MG CAPSULE PO SCH ×4 (06:57→22:13)
--- NOTE | 2018-06-27 09:50 | EKG ---
Test Reason : Blood Pressure : / mmHG Vent. Rate : 062 BPM Atrial Rate : 062 BPM P-R Int : 178 ms QRS Dur : 090 ms QT Int : 398 ms P-R-T Axes : 047 068 064 degrees QTc Int : 403 ms NORMAL SINUS RHYTHM WITH SINUS ARRHYTHMIA NORMAL ECG WHEN COMPARED WITH ECG OF 15-MAY-2017 14:18, NO SIGNIFICANT CHANGE WAS FOUND Confirmed by MILLI ANN MD ([id number]) on 06/27/2018 9:50:06 AM Referred By: Confirmed By:MILLI ANN MD
[2018-06-27] MEDS ORDERED: ONDANSETRON *ODT* 4 MG TABLET SL PRN (10:16)
[2018-06-27] MEDS ORDERED: TRIMETHOBENZAMIDE HCL 200MG/2ML INJ IM PRN (10:17)
[2018-06-27] MEDS ORDERED: chlordiazePOXIDE HCL 25 MG CAPSULE PO SCH ×3 (10:20→17:00)
[2018-06-27] MEDS ORDERED: chlordiazePOXIDE HCL 25 MG CAPSULE PO PRN (10:21)
[2018-06-27] MEDS: cloNIDine HCL 0.1 MG TABLET PO SCH ×2 (10:21→22:13)
[2018-06-27] MEDS: PRENATAL VITAMINS W/ FOLIC ACID TABLET (FP) PO SCH (10:23)
[2018-06-27] MEDS: NICOTINE 21 MG/24 HOURS TOPICAL PATCH TD SCH (10:23)
[2018-06-27 10:32] LABS: HEMATOCRIT 39.5 % (35.4-49); HEMOGLOBIN 12.9 GM/dL (11.7-16.9); MCH 28.8 pg (25.7-33.7); MCHC 32.6 g/dl (32.0-35.9); MEAN CELL VOLUME 88.2 fl (80-96); MEAN PLT VOLUME 7.3 fl (7.5-11.1); PLATELET COUNT 292 K/MM3 (134-434); RBC 4.47 M/mm3 (4.00-5.60); RDW 14.6 % (11.9-15.9); WHITE BLOOD COUNT 4.8 K/mm3 (4.0-10.0)
[2018-06-27 11:01] LABS: ALK PHOS 47 U/L (45-117); ANION GAP 9 MMOL/L (8-16); BILIRUBIN,TOTAL 0.1 mg/dL (0.2-1); BLOOD UREA NITROGEN 15 mg/dL (7-18); CHLORIDE 107 mmol/L (98-107); CO2 23 mmol/L (21-32); GLUCOSE,RANDOM 90 mg/dL (74-106); POTASSIUM 4.3 mmol/L (3.5-5.1); SGOT/AST 16 U/L (15-37); SGPT/ALT 27 U/L (13-61); SODIUM 140 mmol/L (136-145); TOT PROT 6.2 g/dl (6.4-8.2)
--- NOTE | 2018-06-27 11:52 | PN ---
[facility] CIWA - CIWA Score Nausea/Vomitin Muscle Tremors: 4-Moderate,w/Arms Extend Anxiety: 4-Mod. Anxious/Guarded Agitation: 3 Paroxysmal Sweats: 3 Orientation: 0-Oriented Tacttile Disturbances: 0-None Auditory Disturbances: 0-None Visual Disturbances: 0-None Headache: 0-None Present CIWA-Ar Total Score: 16 BHS Progress Note (SOAP) Subjective: N/V (vomited x 3), sweating, tremor, interrupted sleep Objective: 06/27/18 11:49 Last Vital Signs Temp Pulse Resp BP Pulse Ox 97.6 F 65 18 109/60 06/27/18 09:05 06/27/18 09:05 06/27/18 09:05 06/27/18 09:05 Laboratory Tests 06/26/18 06/27/18 06/27/18 23:00 07:30 07:30 WBC 4.8 RBC 4.47 Hgb 12.9 Hct 39.5 MCV 88.2 MCH 28.8 MCHC 32.6 RDW 14.6 D Plt Count 292 D MPV 7.3 L Sodium 140 Potassium 4.3 Chloride 107 Carbon Dioxide 23 Anion Gap 9 BUN 15 Creatinine 1.0 Creat Clearance w eGFR > 60 Random Glucose 90 Calcium 8.0 L Total Bilirubin 0.1 L AST 16 ALT 27 Alkaline Phosphatase 47 Total Protein 6.2 L Albumin 3.0 L Urine Color Yellow Urine Appearance Clear Urine pH 5.0 Ur Specific [place] 1.027 Urine Protein Negative Urine Glucose (UA) Negative Urine Ketones Negative Urine Blood Negative Urine Nitrite Negative Urine Bilirubin Negative Urine Urobilinogen 2.0 Ur Leukocyte Esterase Negative Labs reviewed Assessment: 06/27/18 11:49 Withdrawal symptoms Plan: Continue detox Encouraged PO water intake Ordered for zofran SL prn and tigan IM prn (give tigan IM if vomiting persist) Librium ordered to be given whole as patient reported that the liquid makes him vomit
[2018-06-27] MEDS ORDERED: FLU VACCINE QUAD 60 MCG/0.5 ML (MDV 18-19) IM ONE (12:00)
[2018-06-27] MEDS: AMMONIUM LACTATE 12% LOTION 225 GM BOTTLE TP SCH ×2 (14:03→22:14)
[2018-06-27] MEDS: THIAMINE HCL 100 MG TABLET (FP) PO SCH (22:14)
[2018-06-28] MEDS: chlordiazePOXIDE HCL 25 MG CAPSULE PO SCH ×3 (06:23→17:11)
[2018-06-28] MEDS: cloNIDine HCL 0.1 MG TABLET PO SCH ×2 (10:16→22:37)
[2018-06-28] MEDS: PRENATAL VITAMINS W/ FOLIC ACID TABLET (FP) PO SCH (10:16)
[2018-06-28] MEDS: NICOTINE 21 MG/24 HOURS TOPICAL PATCH TD SCH (10:17)
[2018-06-28] MEDS: AMMONIUM LACTATE 12% LOTION 225 GM BOTTLE TP SCH ×2 (10:17→22:37)
--- NOTE | 2018-06-28 13:59 | PN ---
S CIWA - CIWA Score Nausea/Vomitin Muscle Tremors: 3 Anxiety: 3 Agitation: 3 Paroxysmal Sweats: 3 Orientation: 0-Oriented Tacttile Disturbances: 0-None Auditory Disturbances: 0-None Visual Disturbances: 0-None Headache: 0-None Present CIWA-Ar Total Score: 14 BHS Progress Note (SOAP) Subjective: Sweating, interrupted sleep, anxious Objective: 06/28/18 13:56 Last Vital Signs Temp Pulse Resp BP Pulse Ox 98.1 F 74 18 106/62 06/28/18 13:24 06/28/18 13:24 06/28/18 13:24 06/28/18 13:24 Laboratory Tests 06/26/18 06/27/18 06/27/18 23:00 07:30 07:30 WBC 4.8 RBC 4.47 Hgb 12.9 Hct 39.5 MCV 88.2 MCH 28.8 MCHC 32.6 RDW 14.6 D Plt Count 292 D MPV 7.3 L Sodium Potassium Chloride Carbon Dioxide Anion Gap BUN Creatinine Creat Clearance w eGFR Random Glucose Calcium Total Bilirubin AST ALT Alkaline Phosphatase Total Protein Albumin Urine Color Yellow Urine Appearance Clear Urine pH 5.0 Ur Specific [place] 1.027 Urine Protein Negative Urine Glucose (UA) Negative Urine Ketones Negative Urine Blood Negative Urine Nitrite Negative Urine Bilirubin Negative Urine Urobilinogen 2.0 Ur Leukocyte Esterase Negative RPR Titer HIV 1&2 Antibody Screen Negative HIV P24 Antigen Negative 06/27/18 06/27/18 07:30 07:30 WBC RBC Hgb Hct MCV MCH MCHC RDW Plt Count MPV Sodium 140 Potassium 4.3 Chloride 107 Carbon Dioxide 23 Anion Gap 9 BUN 15 Creatinine 1.0 Creat Clearance w eGFR > 60 Random Glucose 90 Calcium 8.0 L Total Bilirubin 0.1 L AST 16 ALT 27 Alkaline Phosphatase 47 Total Protein 6.2 L Albumin 3.0 L Urine Color Urine Appearance Urine pH Ur Specific [place] Urine Protein Urine Glucose (UA) Urine Ketones Urine Blood Urine Nitrite Urine Bilirubin Urine Urobilinogen Ur Leukocyte Esterase RPR Titer Nonreactive HIV 1&2 Antibody Screen HIV P24 Antigen Labs reviewed Assessment: 06/28/18 13:57 Withdrawal sxs Plan: Continue detox Encouraged PO water intake
[2018-06-28] MEDS ORDERED: chlordiazePOXIDE 5 MG CAPSULE PO SCH ×2 (17:00)
[2018-06-28] MEDS: THIAMINE HCL 100 MG TABLET (FP) PO SCH (22:37)
[2018-06-28] MEDS: chlordiazePOXIDE 5 MG CAPSULE PO SCH (22:37)
[2018-06-29 06:34] VITALS: BP 104/62; PULSE 59; TEMP 97.1
[2018-06-29] MEDS: chlordiazePOXIDE 5 MG CAPSULE PO SCH (07:17)
[2018-06-29] MEDS: AMMONIUM LACTATE 12% LOTION 225 GM BOTTLE TP SCH (09:23)
[2018-06-29] MEDS: PRENATAL VITAMINS W/ FOLIC ACID TABLET (FP) PO SCH (09:23)
[2018-06-29] MEDS: cloNIDine HCL 0.1 MG TABLET PO SCH (09:23)
[2018-06-29] MEDS: NICOTINE 21 MG/24 HOURS TOPICAL PATCH TD SCH (09:23)
[2018-06-29] MEDS ORDERED: chlordiazePOXIDE HCL 10 MG CAPSULE PO SCH ×3 (11:00→23:00)
--- NOTE | 2018-06-29 12:21 | DS ---
[facility] Detox Discharge Summary Admission Date: 06/26/18 Discharge Date: 06/29/18 - History Present History: Alcohol Dependence, Cannabis Dependence, Cocaine Dependence, Opioid Dependence Additional Comments: Patient accepted to [facility] but later declined acceptance stating that he prefers to go home. Patient instructed to follow up with his PCP within 1-2 weeks. Pertinent Past History: Opioid dependence Alcohol dependence Cannabis dependence Cocaine dependence Nicotine dependence - Physical Exam Results Vital Signs: Vital Signs Temperature 97.1 F L 06/29/18 06:34 Pulse Rate 59 L 06/29/18 06:34 Respiratory Rate 18 06/29/18 06:34 Blood Pressure 104/62 06/29/18 06:34 O2 Sat by Pulse Oximetry (%) Pertinent Admission Physical Exam Findings: Withdrawal sxs Laboratory Tests 06/26/18 06/27/18 06/27/18 23:00 07:30 07:30 WBC 4.8 RBC 4.47 Hgb 12.9 Hct 39.5 MCV 88.2 MCH 28.8 MCHC 32.6 RDW 14.6 D Plt Count 292 D MPV 7.3 L Sodium Potassium Chloride Carbon Dioxide Anion Gap BUN Creatinine Creat Clearance w eGFR Random Glucose Calcium Total Bilirubin AST ALT Alkaline Phosphatase Total Protein Albumin Urine Color Yellow Urine Appearance Clear Urine pH 5.0 Ur Specific [place] 1.027 Urine Protein Negative Urine Glucose (UA) Negative Urine Ketones Negative Urine Blood Negative Urine Nitrite Negative Urine Bilirubin Negative Urine Urobilinogen 2.0 Ur Leukocyte Esterase Negative RPR Titer HIV 1&2 Antibody Screen Negative HIV P24 Antigen Negative 06/27/18 06/27/18 07:30 07:30 WBC RBC Hgb Hct MCV MCH MCHC RDW Plt Count MPV Sodium 140 Potassium 4.3 Chloride 107 Carbon Dioxide 23 Anion Gap 9 BUN 15 Creatinine 1.0 Creat Clearance w eGFR > 60 Random Glucose 90 Calcium 8.0 L Total Bilirubin 0.1 L AST 16 ALT 27 Alkaline Phosphatase 47 Total Protein 6.2 L Albumin 3.0 L Urine Color Urine Appearance Urine pH Ur Specific [place] Urine Protein Urine Glucose (UA) Urine Ketones Urine Blood Urine Nitrite Urine Bilirubin Urine Urobilinogen Ur Leukocyte Esterase RPR Titer Nonreactive HIV 1&2 Antibody Screen HIV P24 Antigen Labs reviewed - Treatment Hospital Course: Detox Protocol Followed, Detoxed Safely, Responded well, Discharged Condition Good - Medication Discharge Medications: Ambulatory Orders NK [No Known Home Medication] 08/20/16 - Diagnosis (1) Opioid dependence Status: Acute (2) Alcohol dependence with uncomplicated withdrawal Status: Acute (3) Cannabis dependence, uncomplicated Status: Chronic (4) Cocaine dependence, uncomplicated Status: Chronic (5) Nicotine dependence Status: Chronic Qualifiers: Nicotine product type: cigarettes Substance use status: in withdrawal Qualified Code(s): F17.213 - Nicotine dependence, cigarettes, with withdrawal - AMA Did Patient Leave Against Medical Advice: No (Patient declined acceptance to [facility] rehab)
== END 2018-06-29 09:30 | disposition home or self-care (01) | DRG 773 ==
LOC: YASAS 11:44 → Y3N 15:44
PROC: HZ2ZZZZ Detoxification Services for Substance Abuse Treatment (ICD-10-PCS; principal; 2018-06-26)
DX: F10.230 Alcohol dependence with withdrawal, uncomplicated (principal); F11.23 Opioid dependence with withdrawal; F14.20 Cocaine dependence, uncomplicated; F12.20 Cannabis dependence, uncomplicated; F17.213 Nicotine dependence, cigarettes, with withdrawal; R63.4 Abnormal weight loss; Z68.1 Body mass index [BMI] 19.9 or less, adult
CPT/HCPCS: 36415; 80053; 81003; 85027; 86593; 87389; 90688; 93005; 93010; G0008; J0735

== ENCOUNTER 2019-09-26 15:02 | Inpatient (IN) | payer OTHER ==
--- NOTE | 2019-09-26 17:03 | HP ---
CIWA Score Nausea/Vomitin-Mild Nausea/No Vomiting Muscle Tremors: 4-Moderate,w/Arms Extend Anxiety: 4-Mod. Anxious/Guarded Agitation: 1-Slight > Activity Paroxysmal Sweats: 2 Orientation: 0-Oriented Tacttile Disturbances: 1-Very Mild Itch/Numbness Auditory Disturbances: 0-None Visual Disturbances: 0-None Headache: 0-None Present CIWA-Ar Total Score: 13 - Admission Criteria [facility] Guidelines: Admission for Medically Managed Detox: Requires at least one of the followin. CIWA greater than 12 2. Seizures within the past 24 hours 3. Delirium tremens within the past 24 hours 4. Hallucinations within the past 24 hours 5. Acute intervention needed for co occurring medical disorder 6. Acute intervention needed for co occurring psychiatric disorder 7. Severe withdrawal that cannot be handled at a lower level of care (continued vomiting, continued diarrhea, abnormal vital signs) requiring intravenous medication and/or fluids 8. Admitting History and Physical - Admission Chief Complaint: for detox from alcohol History of Present Illness: 34 yo M w/ Hx of Polysubstance abuse , last here 06/2018 for rehab presents for detox and rehab from alcohol, cocaine, K2, marijuana. Pt states that his longest sobriety was years ago when he was incarcerated. He currenty lives in a [facility]. Alcohol: 1 liter daily. first drink at 17yo, last drink yesterday. acknowledges withdrawal seizures, blackouts Cocaine: sniffs $100 / day. first use at 18 yo, last use yesterday K2: 1 bag/ day. first use 34 yo , last use yesterday Marijuana: $50/wk, first use at 14 yo, last use yesterday Denies IVDU Denies PSH, Denies Psych hx denies medication use Pt states that he gets episodes of sharp chest pain that radiates to his shoulders. he states this pain has occurred 2x this week. it is self resolving within a few minutes. he states pain is positional. he has not had any medical help for this issue. will get EKG to further eval . History Source: Patient Limitations to Obtaining History: No Limitations - Smoking History Smoking history: Current every day smoker Have you smoked in the past 12 months: No Aproximately how many cigarettes per day: 10 - Alcohol/Substance Use Hx Alcohol Use: Yes Admission ROS BHS - HPI Allergies/Adverse Reactions: Allergies Allergy/AdvReac Type Severity Reaction Status Date / Time No Known Allergies Allergy Verified 09/26/19 17:19 Exam Limitations: No Limitations - Ebola screening Do you have a fever: No - Review of Systems Constitutional: No Symptoms Reported EENT: reports: No Symptoms Reported Respiratory: reports: No Symptoms reported Cardiac: reports: Chest Pain, Chest Tightness GI: reports: Abdominal cramping : reports: No Symptoms Reported Musculoskeletal: reports: Joint Pain Integumentary: reports: No Symptoms Reported Neuro: reports: No Symptoms reported Endocrine: reports: No Symptoms Reported Hematology: reports: No Symptoms Reported Patient History - Patient Medical History Hx Anemia: No Hx Asthma: No Hx Chronic Obstructive Pulmonary Disease (COPD): No Hx Cancer: No Hx Cardiac Disorders: No Hx Congestive Heart Failure: No Hx Hypertension: No Hx Hypercholesterolemia: No Hx Pacemaker: No HX Cerebrovascular Accident: No Hx Seizures: No Hx Dementia: No Hx Diabetes: No Hx Gastrointestinal Disorders: No Hx Liver Disease: No Hx Genitourinary Disorders: No Hx Sexually Transmitted Disorders: No Hx Renal Disease (ESRD): No Hx Thyroid Disease: No Hx Human Immunodeficiency Virus (HIV): No (LAST 2017 NEGATIVE) Hx Hepatitis C: No Hx Depression: No Hx Suicide Attempt: No Hx Bipolar Disorder: No Hx Schizophrenia: No - Patient Surgical History Past Surgical History: No Hx Neurologic Surgery: No Hx Cataract Extraction: No Hx Cardiac Surgery: No Hx Lung Surgery: No Hx Breast Surgery: No Hx Breast Biopsy: No Hx Abdominal Surgery: No Hx Appendectomy: No Hx Cholecystectomy: No Hx Genitourinary Surgery: No Hx Section: No Hx Orthopedic Surgery: No Anesthesia Reaction: No - PPD History Date: 06/28/18 Results: 0 mm - Smoking Cessation Smoking history: Current every day smoker Have you smoked in the past 12 months: No Aproximately how many cigarettes per day: 10 Cigars Per Day: 0 Hx Chewing Tobacco Use: No Initiated information on smoking cessation: Yes 'Breaking Loose' booklet given: 09/26/19 Admission Physical Exam BHS - Physical General Appearance: Yes: Thin, Tremorous, Irritable HEENTM: Yes: EOMI, Hearing grossly Normal, Normocephalic, Normal Voice, BREANNE Respiratory: Yes: Chest Non-Tender, Lungs Clear, Normal Breath Sounds, No Respiratory Distress, No Accessory Muscle Use Cardiology: Yes: Regular Rhythm, Regular Rate, S1, S2. No: JVD, Murmur Abdominal: Yes: Normal Bowel Sounds, Non Tender, Soft. No: Tenderness Back: No: CVA Tenderness Extremities: Yes: Normal Capillary Refill, Normal Inspection. No: Pedal Edema, Calf Tenderness Neurological: Yes: Fully Oriented Integumentary: Yes: Normal Color, Dry, Warm - Diagnostic (1) Alcohol dependence with uncomplicated withdrawal Current Visit: No Status: Acute (2) Cannabis dependence, uncomplicated Current Visit: No Status: Chronic (3) Cocaine dependence, uncomplicated Current Visit: No Status: Chronic Cleared for Admission S - Detox or Rehab [facility] Level of Care: Medically Managed Detox Regimen/Protocol: Librium Claeared for Rehab Admission: No Breathalyzer - Breathalyzer Breathalyzer: 0 Urine Drug Screen - Test Device Lot number: [id number] Expiration date: 07/20/21 - Control Is test valid?: Yes - Results Drug screen NEGATIVE: No Urine drug screen results: VINCENT-Cocaine Inpatient Rehab Admission - Rehab Decision to Admit Inpatient rehab admission?: No
[2019-09-26] MEDS ORDERED: BISMUTH SUBSALICYLATE 524 MG/30 ML UD PO PRN (17:39)
[2019-09-26] MEDS ORDERED: MENTHOL/PHENOL 1 EACH UD MM PRN (17:39)
[2019-09-26] MEDS ORDERED: MAGNESIUM HYDROX 2400MG/30ML ORAL SUSPENSION 30 ML CUP PO PRN (17:39)
[2019-09-26] MEDS ORDERED: hydrOXYzine PAMOATE 25 MG CAPSULE (FP) PO PRN (17:39)
[2019-09-26] MEDS ORDERED: chlordiazePOXIDE HCL 10 MG CAPSULE PO PRN (17:39)
[2019-09-26] MEDS ORDERED: MAG HYDROX/AL HYDROX/SIMETH 30 ML UNIT-DOSE CUP PO PRN (17:39)
[2019-09-26] MEDS ORDERED: MAGNESIUM CITRATE 300 ML BOTTLE PO PRN (17:39)
[2019-09-26] MEDS ORDERED: METHOCARBAMOL 500 MG TABLET PO PRN (17:39)
[2019-09-26] MEDS ORDERED: MELATONIN 5 MG TABLETS PO PRN (17:39)
[2019-09-26] MEDS ORDERED: ACETAMINOPHEN 325 MG TABLET (FP) PO PRN ×2 (17:39)
[2019-09-26 18:19] VITALS: BMI 23.3
[2019-09-26] MEDS: THIAMINE HCL 100 MG TABLET (FP) PO SCH (22:44)
[2019-09-26] MEDS: chlordiazePOXIDE HCL 25 MG CAPSULE PO SCH (22:44)
[2019-09-27] MEDS: chlordiazePOXIDE HCL 25 MG CAPSULE PO SCH ×2 (06:17→14:08)
[2019-09-27] MEDS: PRENATAL VITAMINS W/ FOLIC ACID TABLET (FP) PO SCH (10:13)
[2019-09-27] MEDS: NICOTINE 7 MG/24 HOURS TOPICAL PATCH TD SCH (10:13)
[2019-09-27 10:39] LABS: HEMATOCRIT 38.6 % (35.4-49); HEMOGLOBIN 12.6 GM/dL (11.7-16.9); MCH 29.3 pg (25.7-33.7); MCHC 32.7 g/dl (32.0-35.9); MEAN CELL VOLUME 89.7 fl (80-96); MEAN PLT VOLUME 7.9 fl (7.5-11.1); PLATELET COUNT 271 K/MM3 (134-434); RDW 13.5 % (11.9-15.9); WHITE BLOOD COUNT 7.2 K/mm3 (4.0-10.0)
[2019-09-27 10:57] LABS: BILIRUBIN,TOTAL 0.4 mg/dL (0.2-1); BLOOD UREA NITROGEN 8.8 mg/dL (7-18); CALCIUM 8.6 mg/dL (8.5-10.1); CREATININE 1.1 mg/dL (0.55-1.3); POTASSIUM 4.2 mmol/L (3.5-5.1); TOT PROT 6.1 g/dl (6.4-8.2)
--- NOTE | 2019-09-27 14:39 | PN ---
[facility] CIWA - CIWA Score Nausea/Vomitin-Mild Nausea/No Vomiting Muscle Tremors: 2 Anxiety: 1-Mildly Anxious Agitation: 2 Paroxysmal Sweats: 2 Orientation: 0-Oriented Tacttile Disturbances: 1-Very Mild Itch/Numbness Auditory Disturbances: 0-None Visual Disturbances: 0-None Headache: 2-Mild CIWA-Ar Total Score: 11 S Progress Note (SOAP) Subjective: alert,irritable,anxious,interrupted sleep,pain in the body Objective: 09/27/19 14:37 Vital Signs Temperature 98.7 F 09/27/19 13:58 Pulse Rate 51 L 09/27/19 13:58 Respiratory Rate 18 09/27/19 13:58 Blood Pressure 108/73 09/27/19 13:58 O2 Sat by Pulse Oximetry (%) 09/27/19 14:38 Laboratory Last Values WBC 7.2 K/mm3 (4.0-10.0) 09/27/19 08:00 RBC 4.30 M/mm3 (4.00-5.60) 09/27/19 08:00 Hgb 12.6 GM/dL (11.7-16.9) 09/27/19 08:00 Hct 38.6 % (35.4-49) 09/27/19 08:00 MCV 89.7 fl (80-96) 09/27/19 08:00 MCH 29.3 pg (25.7-33.7) 09/27/19 08:00 MCHC 32.7 g/dl (32.0-35.9) 09/27/19 08:00 RDW 13.5 % (11.9-15.9) 09/27/19 08:00 Plt Count 271 K/MM3 (134-434) 09/27/19 08:00 MPV 7.9 fl (7.5-11.1) 09/27/19 08:00 Sodium 140 mmol/L (136-145) 09/27/19 08:00 Potassium 4.2 mmol/L (3.5-5.1) 09/27/19 08:00 Chloride 108 mmol/L (98-107) H 09/27/19 08:00 Carbon Dioxide 28 mmol/L (21-32) 09/27/19 08:00 Anion Gap 4 MMOL/L (8-16) L 09/27/19 08:00 BUN 8.8 mg/dL (7-18) 09/27/19 08:00 Creatinine 1.1 mg/dL (0.55-1.3) 09/27/19 08:00 Est GFR (CKD-EPI)AfAm 99.57 09/27/19 08:00 Est GFR (CKD-EPI)NonAf 85.91 09/27/19 08:00 Random Glucose 87 mg/dL (74-106) 09/27/19 08:00 Calcium 8.6 mg/dL (8.5-10.1) 09/27/19 08:00 Total Bilirubin 0.4 mg/dL (0.2-1) 09/27/19 08:00 AST 22 U/L (15-37) 09/27/19 08:00 ALT 43 U/L (13-61) 09/27/19 08:00 Alkaline Phosphatase 47 U/L (45-117) 09/27/19 08:00 Total Protein 6.1 g/dl (6.4-8.2) L 09/27/19 08:00 Albumin 3.0 g/dl (3.4-5.0) L 09/27/19 08:00 rpr pending 09/27/19 14:38 Assessment: 09/27/19 14:39 withdrawal symptom Plan: continue detox librium regimen,patient would like regimen to be changed to valium
[2019-09-27] MEDS ORDERED: diazePAM 5 MG TABLET PO PRN (15:17)
[2019-09-27] MEDS: IBUPROFEN 400 MG TABLET (FP) PO PRN ×2 (16:35→22:40)
[2019-09-27] MEDS: THIAMINE HCL 100 MG TABLET (FP) PO SCH (22:41)
[2019-09-27] MEDS: diazePAM 5 MG TABLET PO SCH (22:41)
[2019-09-28] MEDS ORDERED: chlordiazePOXIDE 5 MG CAPSULE PO SCH (05:00)
[2019-09-28] MEDS: diazePAM 5 MG TABLET PO SCH (05:09)
[2019-09-28 09:36] VITALS: BP 103/61; PULSE 60; TEMP 96.1
[2019-09-28] MEDS: IBUPROFEN 400 MG TABLET (FP) PO PRN (10:38)
[2019-09-28] MEDS: PRENATAL VITAMINS W/ FOLIC ACID TABLET (FP) PO SCH (10:38)
[2019-09-28] MEDS: NICOTINE 7 MG/24 HOURS TOPICAL PATCH TD SCH (10:40)
--- NOTE | 2019-09-28 14:33 | DS ---
[facility] Detox Discharge Summary Admission Date: 09/26/19 Discharge Date: 09/28/19 (Left AMA) - History Present History: Alcohol Dependence, Cannabis Dependence, Cocaine Dependence Additional Comments: As per H&P: "34 yo M w/ Hx of Polysubstance abuse , last here 06/2018 for rehab presents for detox and rehab from alcohol, cocaine, K2, marijuana. Pt states that his longest sobriety was years ago when he was incarcerated. He currenty lives in a longterm. Alcohol: 1 liter daily. first drink at 17yo, last drink yesterday. acknowledges withdrawal seizures, blackouts Cocaine: sniffs $100 / day. first use at 18 yo, last use yesterday K2: 1 bag/ day. first use 34 yo , last use yesterday Marijuana: $50/wk, first use at 14 yo, last use yesterday". Pt left AMA. Pt did not complete the detox protocol. Pt states, "i have something important to take care of". An attempt to let pt stay and complete the detox protocol failed. Pt is encouraged to follow-up with an outpatient CD program and also to follow-up with his pmd. Pt was adamant about the information given. Pt is alert and oriented x3 and in no acute respiratory distress. Pertinent Past History: c/o cocaine, alcohol, and cannabis use disorder. - Physical Exam Results Vital Signs: Vital Signs Temperature 96.1 F L 09/28/19 09:30 Pulse Rate 60 09/28/19 09:30 Respiratory Rate 20 09/28/19 09:30 Blood Pressure 103/61 09/28/19 09:30 O2 Sat by Pulse Oximetry (%) Vital Signs 09/28/19 09/28/19 06:44 09:30 Temperature 97.9 F 96.1 F L Pulse Rate 51 L 60 Respiratory 18 20 Rate Blood Pressure 100/50 L 103/61 Laboratory Last Values WBC 7.2 K/mm3 (4.0-10.0) 09/27/19 08:00 RBC 4.30 M/mm3 (4.00-5.60) 09/27/19 08:00 Hgb 12.6 GM/dL (11.7-16.9) 09/27/19 08:00 Hct 38.6 % (35.4-49) 09/27/19 08:00 MCV 89.7 fl (80-96) 09/27/19 08:00 MCH 29.3 pg (25.7-33.7) 09/27/19 08:00 MCHC 32.7 g/dl (32.0-35.9) 09/27/19 08:00 RDW 13.5 % (11.9-15.9) 09/27/19 08:00 Plt Count 271 K/MM3 (134-434) 09/27/19 08:00 MPV 7.9 fl (7.5-11.1) 09/27/19 08:00 Sodium 140 mmol/L (136-145) 09/27/19 08:00 Potassium 4.2 mmol/L (3.5-5.1) 09/27/19 08:00 Chloride 108 mmol/L (98-107) H 09/27/19 08:00 Carbon Dioxide 28 mmol/L (21-32) 09/27/19 08:00 Anion Gap 4 MMOL/L (8-16) L 09/27/19 08:00 BUN 8.8 mg/dL (7-18) 09/27/19 08:00 Creatinine 1.1 mg/dL (0.55-1.3) 09/27/19 08:00 Est GFR (CKD-EPI)AfAm 99.57 09/27/19 08:00 Est GFR (CKD-EPI)NonAf 85.91 09/27/19 08:00 Random Glucose 87 mg/dL (74-106) 09/27/19 08:00 Calcium 8.6 mg/dL (8.5-10.1) 09/27/19 08:00 Total Bilirubin 0.4 mg/dL (0.2-1) 09/27/19 08:00 AST 22 U/L (15-37) 09/27/19 08:00 ALT 43 U/L (13-61) 09/27/19 08:00 Alkaline Phosphatase 47 U/L (45-117) 09/27/19 08:00 Total Protein 6.1 g/dl (6.4-8.2) L 09/27/19 08:00 Albumin 3.0 g/dl (3.4-5.0) L 09/27/19 08:00 RPR Titer Nonreactive (NONREACTIVE) 09/27/19 08:00 Labs noted. Pertinent Admission Physical Exam Findings: withdrawal symptoms. - Treatment Hospital Course: Detox Protocol Followed - Medication Discharge Medications: Ambulatory Orders NK [No Known Home Medication] 08/20/16 - Diagnosis (1) Alcohol dependence with uncomplicated withdrawal Status: Chronic (2) Heroin abuse Status: Chronic (3) Low back pain Status: Chronic Qualifiers: Back pain laterality: unspecified (4) Opioid dependence Status: Chronic (5) Cannabis dependence, uncomplicated Status: Chronic (6) Cocaine dependence, uncomplicated Status: Chronic (7) Nicotine dependence Status: Chronic Qualifiers: Nicotine product type: cigarettes Substance use status: in withdrawal Qualified Code(s): F17.213 - Nicotine dependence, cigarettes, with withdrawal - AMA Did Patient Leave Against Medical Advice: Yes
--- NOTE | 2019-09-28 14:37 | EKG ---
Test Reason : Blood Pressure : / mmHG Vent. Rate : 050 BPM Atrial Rate : 050 BPM P-R Int : 188 ms QRS Dur : 096 ms QT Int : 418 ms P-R-T Axes : 026 050 044 degrees QTc Int : 381 ms SINUS BRADYCARDIA OTHERWISE NORMAL ECG Confirmed by MD DOMINGUEZ, ALESSANDRO ([id number]) on 09/28/2019 2:37:07 PM Referred By: Confirmed By:ALESSANDRO IMX MD
[2019-09-29] MEDS ORDERED: chlordiazePOXIDE HCL 10 MG CAPSULE PO PRN
[2019-09-29] MEDS ORDERED: chlordiazePOXIDE HCL 10 MG CAPSULE PO SCH (05:00)
[2019-09-29] MEDS ORDERED: diazePAM 5 MG TABLET PO SCH (06:00)
[2019-09-30] MEDS ORDERED: chlordiazePOXIDE HCL 10 MG CAPSULE PO ONE (05:00)
[2019-09-30] MEDS ORDERED: diazePAM 5 MG TABLET PO ONE (06:00)
== END 2019-09-28 11:27 | disposition left against medical advice (07) | DRG 770 ==
LOC: YASAS 15:02 → Y3N 18:30
PROVIDERS: ADMIT Allergy & Immunology; ATTEND Allergy & Immunology
PROC: HZ2ZZZZ Detoxification Services for Substance Abuse Treatment (ICD-10-PCS; principal; 2019-09-26)
DX: F10.230 Alcohol dependence with withdrawal, uncomplicated (principal); F11.10 Opioid abuse, uncomplicated; F14.20 Cocaine dependence, uncomplicated; F12.20 Cannabis dependence, uncomplicated; F17.210 Nicotine dependence, cigarettes, uncomplicated; M54.5 Low back pain; G89.29 Other chronic pain
CPT/HCPCS: 36415; 80053; 85027; 86593; 93005; 93010